=== PATIENT | female | born 1960 | race Caucasian/White ===

== ENCOUNTER → 2018-05-13 | Outpatient (CLI) | payer BC ==
--- NOTE | 2018-05-13 16:43 | XR ---
EXAMINATION TYPE: XR foot complete RT DATE OF EXAM: 05/13/2018 COMPARISON: NONE HISTORY: Pain TECHNIQUE: 3 views FINDINGS: There is a 9 mm area of increased density at the base of this proximal phalanx of the secon d toe that could be bone cement or bone graft related to previous bone cyst. There is narrowing and s purring at the first MP joint. Metatarsals are intact. I see no fracture nor dislocation. There is a plantar calcaneal spur. IMPRESSION: Osteoarthritis at the first MP joint. No fracture.
== END | disposition home or self-care (01) ==
LOC: RADXRYALE 16:25
PROVIDERS: ATTEND Internal Medicine
DX: M19.071 Primary osteoarthritis, right ankle and foot (principal)

== ENCOUNTER → 2018-12-10 | Outpatient (CLI) | payer BC | END | disposition home or self-care (01) | LOC: LABPAT 14:18 | PROVIDERS: ATTEND Orthopaedic Surgery | DX: Z01.812 Encounter for preprocedural laboratory examination (principal) | CPT/HCPCS: 87070 ==

== ENCOUNTER → 2018-12-18 | Outpatient (CLI) | payer BC ==
[2018-12-18 17:30] LABS: INR 0.9 (<1.2); Partial Thromboplastin Time 24.3 sec (22.0-30.0); Prothrombin Time 9.8 sec (9.0-12.0)
[2018-12-18 17:31] LABS: Appearance,Urine Clear (Clear); Bilirubin,Urine Negative (Negative); Blood,Urine Small (Negative); Color,Urine Yellow; Glucose,Urine (UA) Negative (Negative); HCT 45.3 % (34.0-46.0); Ketones,Urine Negative (Negative); Leukocyte Esterase,Urine Negative (Negative); MCH 30.7 pg (25.0-35.0); MCHC 33.1 g/dL (31.0-37.0); MCV 92.7 fL (80.0-100.0); Mean Platelet Volume 7.2; Mucus,Urine Rare /hpf; Nitrite,Urine Negative (Negative); PH, Urine 6.5 (5.0-8.0); Platelet Count 196 k/uL (150-450); Protein,Urine Negative (Negative); RBC 4.89 m/uL (3.80-5.40); RBC,Urine 5 /hpf (0-5); RDW 12.6 % (11.5-15.5); Specific Gravity,Urine 1.015 (1.001-1.035); Urobilinogen,Urine <2.0 mg/dL (<2.0); WBC 6.6 k/uL (3.8-10.6)
[2018-12-18 17:55] LABS: Anion Gap 8 mmol/L; Blood Urea Nitrogen 16 mg/dL (7-17); Carbon Dioxide 30 mmol/L (22-30); Chloride 104 mmol/L (98-107); Potassium 4.1 mmol/L (3.5-5.1); Sodium 142 mmol/L (137-145)
== END | disposition home or self-care (01) ==
LOC: LABPAT 16:13
PROVIDERS: ATTEND Orthopaedic Surgery
DX: Z01.818 Encounter for other preprocedural examination (principal); M17.11 Unilateral primary osteoarthritis, right knee; Z01.812 Encounter for preprocedural laboratory examination
CPT/HCPCS: 36415; 80051; 81001; 82565; 84520; 85027; 85610; 85730; 93005

== ENCOUNTER 2018-12-23 10:38 | Inpatient (IN) | payer BC ==
[~2018-12-23 10:38] MED LIST: ACETAMINOPHEN TAB 500 MG TAB PO ONE; LIDOCAINE 1% 20 ML VIAL (10MG/ML) FOR IV START INTRADERMA PRN; MIDAZOLAM (PF) 2 MG/2 ML VIAL IV PRN; ONDANSETRON 4 MG/2 ML VIAL IVP ONE; TRANEXAMIC ACID 1,000 MG in SODIUM CHLORIDE 0.9% 100 ML IVPB ONE; ceFAZolin IN SWFI 2 GM/20 ML SYRINGE IVP ONE; fentaNYL (PF) 50 MCG/ML 2 ML AMP IV PRN
[2018-12-23 11:16] LABS: Glucose,Whole Blood 102 mg/dL (75-99)
[2018-12-23] MEDS: LACTATED RINGERS 1,000 ML IV SCH ×4 (11:16→17:47)
[2018-12-23] MEDS ORDERED: MIDAZOLAM 2 MG/2 ML VIAL IVP ONE (11:42)
[2018-12-23] MEDS ORDERED: fentaNYL (PF) 50 MCG/ML 2 ML AMP IVP ONE (11:42)
[2018-12-23] MEDS ORDERED: ROPIVACAINE 1,100 MG, SODIUM CHLORIDE 0.9% 500 ML 330 ML MISCELLANE PRN ×2 (12:14)
--- NOTE | 2018-12-23 12:17 | P.ONQ ---
Anesthesiology Proc Note - PNB - Peripheral Nerve Block Performed Right Adductor Canal Infusion Time Out Performed: Yes Procedure Start Time: 11:42 Indication: Acute Post-Operative Pain, Analgesia Sedation Type: Awake Preparation: Sterile Prep Position: Supine Catheter Depth at Skin (cm): 7 Catheter: Indwelling Needle Types: Other (see comment) (Sherri) Needle Size: 100mm (4") Needle Gauge: 18 Technique: Ultrasound Injectate: 0.5% Ropivacaine (see comment for volume) (20) Blood Aspirated: No Pain Paresthesia on Injection Noted: No Resistance on Injection: Normal Events: Uneventful and Well Tolerated
[2018-12-23] MEDS ORDERED: MIDAZOLAM 2 MG/2 ML VIAL ONE (12:32)
[2018-12-23] MEDS ORDERED: SODIUM CHLORIDE 0.9% 100 ML BAG ONE (12:32)
[2018-12-23] MEDS ORDERED: fentaNYL (PF) 50 MCG/ML 2 ML AMP ONE (12:32)
[2018-12-23] MEDS ORDERED: TRANEXAMIC ACID 1,000 MG/10 ML VIAL ONE (12:32)
[2018-12-23] MEDS ORDERED: PROPOFOL 10 MG/ML 20 ML VIAL IV ONE (12:32)
[2018-12-23] MEDS ORDERED: PHENYLEPHRINE-0.9% NACL SYG 1 MG/10 ML SYRINGE ONE (12:32)
[2018-12-23] MEDS: ROPIVACAINE 246.25 MG, EPINEPHrine 0.5 MG, KETOROLAC 30 MG, cloNIDine HCL/PF 80 MCG, WA... MISCELLANE ONE ×10 (12:37→13:35)
[2018-12-23] MEDS ORDERED: ceFAZolin 3,000 MG in SODIUM CHLORIDE 0.9% IRRIGATIO 3,000 ML IRRIGATION ONE (12:37)
[2018-12-23] MEDS ORDERED: LACTATED RINGERS 1,000 ML IV ONE (14:39)
[2018-12-23] MEDS ORDERED: NALOXONE 0.4 MG/ML 1 ML VIAL IV PRN (15:06)
[2018-12-23] MEDS ORDERED: HYDROmorphone 1 MG/ML 1 ML SYRINGE IVP PRN (15:06)
[2018-12-23] MEDS ORDERED: TEMAZEPAM 15 MG CAP PO PRN (15:06)
[2018-12-23] MEDS ORDERED: BISACODYL 10 MG SUPP RECTAL PRN (15:06)
[2018-12-23] MEDS ORDERED: HYDROcodone/APAP 5-325MG 1 EACH TAB PO PRN (15:06)
[2018-12-23] MEDS ORDERED: HYDROmorphone 0.5 MG/0.5 ML SYRINGE IVP PRN ×2 (15:06)
[2018-12-23] MEDS ORDERED: MAGNESIUM HYDROXIDE 2,400 MG/10 ML CUP PO PRN (15:06)
[2018-12-23] MEDS ORDERED: NA PHOS,M-B/NA PHOS,DI-BA 133 ML ENEMA RECTAL PRN (15:06)
[2018-12-23 15:35] LABS: Glucose,Whole Blood 93 mg/dL (75-99)
--- NOTE | 2018-12-23 15:35 | P.OP ---
Date of Procedure: 12/23/18 Procedure(s) Performed: PREOPERATIVE DIAGNOSIS: Right knee severe osteoarthritis with genu varum POSTOPERATIVE DIAGNOSIS: Right knee severe osteoarthritis with genu varum OPERATION: Right knee cemented total replacement arthroplasty. ANESTHESIA: Spinal ESTIMATED BLOOD LOSS: 100 ml. CRITICAL CARE NURSE SPECIALIST: Melony Briseno PA-C (assistance with: patient positioning, retraction, exposure, hemostasis, leg positioning, implantation, irrigation, closure, dressing) COMPLICATIONS: None apparent. COMPONENTS IMPLANTED: Persona system from [employer] INDICATIONS: Cheryl is a 58-year-old female with a history of right knee osteoarthritis. The patient's knee is end-stage, and conservative management has failed. The operation of knee replacement has been discussed at length in the office, as well as potential risks and complications. These are inclusive of, but not limited to: bleeding, infection, scarring, discomfort, blood vessel and nerve damage, need for further surgery, failure to relieve symptoms, persistence, recurrence, or worsening of problems, loosening, dislocation, wear , blood clot, pulmonary embolism, , gait dysfunction, stiffness, and other risks as discussed in the office. The patient elects to proceed and the consent form has been signed. PROCEDURE: The patient was taken to the operating room and positioned on the operating room table in the supine position. Anesthesia was initiated. Care was taken to make sure that all pressure points were adequately padded. The operative lower extremity was prepped and draped in the usual aseptic fashion using ChloraPrep. Ioban drape was used for the case and the patient received intravenous antibiotics within one hour of the incision. A pneumotourniquet and leg luna were used for the case. The limb was exsanguinated with an Esmarch bandage and the tourniquet was inflated to 350 mmHg. Time-out was called confirming the patient's identity, side, procedure and administration of antibiotics and tranexamic acid. The incision was then created midline directly over the knee, carried down through skin and into the subcutaneous tissues and down to fascia. Full thickness subcutaneous medial flap was developed. Medial parapatellar arthrotomy was performed and the interior of the knee was inspected. There was end-stage osteoarthritis of the knee with a mild to moderate genu varum type deformity. The fat pad was excised and proximal medial release on the tibia was completed using meticulous dissection and a curved osteotome. The anterior cruciate ligament was taken down. Note was made of significant attrition of the anterior and significant degenerative appearance of the cruciate ligaments. The exposure was excellent. The knee was flexed 90 degrees and the patella was everted. A spot was chosen on the femur approximately 1 cm anterior to the posterior cruciate ligament insertion and an intramedullary hole was created within the femur. The intramedullary guide was then set to 5 degrees of valgus. The distal cutting block was attached and pinned into position. An appropriate amount of distal femoral resection was set. The oscillating saw was then used to make the distal femoral cut. This cut was confirmed to be flat with the flat end of an osteotome. The retractors were placed around the tibia and the tibial surface was addressed. The angle and depth of resection was adjusted using an extramedullary cutting guide. The guide had a built-in 3 degree posterior slope cut. Once the cutting guide was adjusted appropriately and in line with the axis of the tibia and confirmed to be in good position in relation to the second metatarsal and transmalleolar axis, the tibial cut was then created with protection of the posterior neurovascular structures and the collateral ligaments. The tibial cut surface was removed and sized. Femoral sizing was then accomplished using anterior referencing. Care was taken to analyze the posterior condyles for signs of deficiency or severe wear, and adjustments to the guide were made, as appropriate. 3 degree external rotation pins were placed. The cutting jig for the femur was applied to these pins. The planned cuts were further analyzed prior to performing them with the oscillating saw. No femoral notching was produced. Bone fragments were removed and the cut surfaces were finished, as necessary, with a reciprocating saw. Spacer block technique was then used to confirm that the flexion and extension gaps were equal. Soft tissue releases and adjustment of the tibial and/or femoral cuts were made, as necessary, until the gaps were equal. This included release of the posterior cruciate ligament, which was excessively tight in this patient. The femur was then further finished for a posterior cruciate ligament substituting component. Patellar resurfacing was performed using a reamer. The size of the required patellar component was estimated and the patellar surface was then reamed down to a residual thickness which would recreate the yocha dehe thickness with the component. The exact placement of the patellar component was adjusted for position based on preoperative x-rays and intraoperative findings. Prior to placing trial components, anesthetic solution consisting of ropivicaine with epinephrine, ketorolac, and clonidine was injected carefully and methodically in a grid pattern using aspiration technique into the soft tissue around the knee circumferentially, starting with the deeper tissues first and progressing to fascia, and then finally the skin/subcutaneous tissue. Particular care was taken when injecting the posterior capsule. The trial components were inserted. The tibial tray was allowed to self center and the patella was noted to track very well. The position of the tibial component was marked and the tibia was then finished for a stemmed tibial component. Cement was mixed on the back table and applied to the final components. Trial components were removed and the cut surfaces of the bone were pulse lavaged thoroughly and dried. Cement was then applied to the tibial surface and pressurized into the surface using finger pressurization technique. The tibial component was then applied and excess cement was removed after it was impacted securely and noted to be flush with the cut surface. In similar fashion, the cement was applied to the cut femoral surface, pressurized in using finger pressurization and the component was impacted into place. Excess cement was removed. The polyethylene spacer was then implanted and locked into position. The patellar component was then applied in similar technique and a patellar clamp was used to hold the patella in place as the cement hardened. Once the cement had fully hardened, the knee was reinspected. Any other cement extrusion was removed and final kinematic testing showed range of motion from 0 to 130 degrees with excellent stability, both medially and laterally and appropriate alignment of the leg. Patellar tracking was excellent. The knee was then thoroughly pulse lavaged with normal saline. The tourniquet was deflated and hemostasis was obtained with electrocautery and IV tranexamic acid, 1 g given at the start of the operation and 1 g at the start of closure. Closure was with #2 Ethibond in the fascia/capsule and supplemented with #2 Quill, 2-0 Vicryl suture was used for the subcutaneous tissues and 3-0 Quill for the skin. Dermabond/Steri-Strips were then applied. A lightly compressive dressing was applied using Webril and an Naseem wrap. The patient was then transferred to stretcher and taken to the recovery room in stable condition. Sponge and needle counts were correct.
[2018-12-23] MEDS: HYDROcodone/APAP 5-325MG 1 EACH TAB PO PRN ×2 (16:22→21:19)
--- NOTE | 2018-12-23 16:45 | XR ---
EXAMINATION TYPE: XR knee limited RT DATE OF EXAM: 12/23/2018 CLINICAL HISTORY: Right knee pain and arthritis status post total knee replacement. TECHNIQUE: Portable AP and crosstable lateral views of the right knee are obtained immediately posto peratively. COMPARISON: None FINDINGS: Metallic hardware from total right knee arthroplasty is seen and appears satisfactory in a lignment and position. There is evidence of recent surgery with diffuse subcutaneous gas extending l aterally and superiorly. IMPRESSION: METALLIC HARDWARE FROM TOTAL RIGHT KNEE ARTHROPLASTY IS SATISFACTORY IN ALIGNMENT.
[2018-12-23 17:10] LABS: Glucose,Whole Blood 158 mg/dL (75-99)
[2018-12-23 18:04] VITALS: BMI 28.2
[2018-12-23 20:07] LABS: Glucose,Whole Blood 137 mg/dL (75-99)
[2018-12-23] MEDS ORDERED: ATORVASTATIN 20 MG TAB PO SCH (21:00)
[2018-12-23] MEDS: SENNOSIDES-DOCUSATE SODIUM 1 EACH TAB PO SCH ×2 (21:15→21:18)
[2018-12-23] MEDS: INSULIN ASPART (NovoLOG) 100 UNIT/ML VIAL SQ SCH (21:16)
[2018-12-23] MEDS: metFORMIN 500 MG TAB PO SCH (21:17)
[2018-12-23] MEDS: ceFAZolin IN SWFI 2 GM/20 ML SYRINGE IVP SCH (21:17)
[2018-12-24 01:41] VITALS: RESP 16
[2018-12-24] MEDS: LACTATED RINGERS 1,000 ML IV SCH ×2 (02:55→11:53)
[2018-12-24] MEDS: ceFAZolin IN SWFI 2 GM/20 ML SYRINGE IVP SCH (04:01)
[2018-12-24] MEDS: HYDROcodone/APAP 5-325MG 1 EACH TAB PO PRN ×2 (04:01→09:19)
[2018-12-24 07:18] LABS: Glucose,Whole Blood 130 mg/dL (75-99)
[2018-12-24 07:58] LABS: Basophils % (A) 0 %; Eosinophils # (A) 0.1 k/uL (0-0.7); Eosinophils % (A) 1 %; HCT 39.3 % (34.0-46.0); HGB 12.5 gm/dL (11.4-16.0); Lymphocytes % (A) 11 %; MCH 30.2 pg (25.0-35.0); MCHC 31.9 g/dL (31.0-37.0); MCV 94.6 fL (80.0-100.0); Mean Platelet Volume 6.8; Monocytes # (A) 0.5 k/uL (0-1.0); Monocytes % (A) 5 %; Neutrophils # (A) 7.2 k/uL (1.3-7.7); Neutrophils % (A) 82 %; Platelet Count 194 k/uL (150-450); RBC 4.16 m/uL (3.80-5.40); RDW 12.4 % (11.5-15.5); WBC 8.9 k/uL (3.8-10.6)
[2018-12-24] MEDS: INSULIN ASPART (NovoLOG) 100 UNIT/ML VIAL SQ SCH ×2 (08:01→11:53)
[2018-12-24] MEDS ORDERED: RIVAROXABAN 10 MG TAB PO SCH (09:00)
[2018-12-24] MEDS: metFORMIN 500 MG TAB PO SCH (09:19)
[2018-12-24 09:23] VITALS: BP 116/73; PULSE 83; TEMP 98.2
[2018-12-24 11:32] LABS: Glucose,Whole Blood 122 mg/dL (75-99)
--- NOTE | 2018-12-24 11:53 | P.PN ---
Progress Note - Text Anesthesia POD 1. Patient is status post right TKR under spinal anesthesia with a right adductor canal catheter placed for postoperative pain relief. With ropivacaine 0.2% running at 8 cc's per hour, the patient's VAS is (1, 3). Catheter site is clean dry and intact.
--- NOTE | 2018-12-24 12:56 | P.DS ---
Providers Date of admission: 12/23/18 10:38 Expected date of discharge: 12/24/18 Attending physician: Ebenezer Pickard Consults: 12/23/18 15:06 Consult Physician Routine Consulting Provider: Gaston Quinteros Consult Reason/Comments: Medical management Do you want consulting provider notified?: Yes Primary care physician: Maryjo Fajardo - Discharge Diagnosis(es) (1) Osteoarthritis of right knee Current Visit: Yes Status: Acute (2) S/P total knee arthroplasty Current Visit: Yes Status: Acute Hospital Course: This is a 58-year-old female who was last seen with complaint of continued right knee pain. The patient has a known history of degenerative arthritis of the right knee and presents to discuss surgical options. After discussion and consideration the patient elects to proceed with total right knee arthroplasty. The patient is seen preoperatively by Dr. Fajardo and cleared for surgery. The patient is admitted to [facility] for total right knee arthroplasty. The procedures performed without complication or sequelae. Patient is doing well postoperatively. Vital signs are stable at discharge. Labs are stable at discharge. the patient is ambulating well with walker with minimal assistance. The patient is discharged to home on postop day #1 pending medical clearance. Please see orders and refer to the med rec for accurate list of medications. Patient Condition at Discharge: Good Plan - Discharge Summary Discharge Rx Participant: No New Discharge Prescriptions: New HYDROcodone/APAP 5-325MG [[place] 5-325] 1 - 2 each PO Q4-6H PRN #50 tab PRN Reason: Pain Rivaroxaban [Xarelto] 10 mg PO DAILY #5 tab Sennosides-Docusate Sodium [Senokot-S] 1 tab PO BID #60 tablet No Action metFORMIN HCL [Glucophage] 500 mg PO BID Simvastatin [Zocor] 40 mg PO HS Lisinopril [Zestril] 5 mg PO HS Nabumetone [Relafen] 750 mg PO BID Discharge Medication List Lisinopril [Zestril] 5 mg PO HS 02/16/15 [History] Nabumetone [Relafen] 750 mg PO BID 02/16/15 [History] Simvastatin [Zocor] 40 mg PO HS 02/16/15 [History] metFORMIN HCL [Glucophage] 500 mg PO BID 02/16/15 [History] HYDROcodone/APAP 5-325MG [[place] 5-325] 1 - 2 each PO Q4-6H PRN #50 tab 12/23/18 [Rx] Rivaroxaban [Xarelto] 10 mg PO DAILY #5 tab 12/23/18 [Rx] Sennosides-Docusate Sodium [Senokot-S] 1 tab PO BID #60 tablet 12/23/18 [Rx] Follow up Appointment(s)/Referral(s): Melony Briseno PAC [PHYSICIAN [employer]] - 01/03/19 2:30 pm [facility], [NON-STAFF] - As Needed Maryjo Fajardo MD [Primary Care Provider] - 1 Week Patient Instructions/Handouts: *Surgery [facility] - On-Q Pain Pump Discharge Instructions, Knee Replacement (DC) Activity/Diet/Wound Care/Special Instructions: May bear wt as tolerated w walker. May shower if no drainage from incision. Discharge Disposition: HOME WITH HOME HEALTH SERVICES
[2018-12-24 13:29] LABS: Hemoglobin A1C 5.5 % (4.0-6.0)
--- NOTE | 2018-12-24 13:42 | P.CONS ---
History of Present Illness - Reason for Consult Recommendations regarding antihypertensive medications medical clearance. - History of Present Illness 58-year-old [place] female admitted for right total knee arthroplasty sepsis and underwent surgery denied any fever chills nausea vomiting abdominal pain patient is passing as he did not move her bowel yet patient does not have any other signs or symptoms of sepsis. Patient uses lisinopril at home which is being held at this time point of time to prevent perioperative hypotension. I believe patient is ready to go home today patient can resume Antihypertensive medication tomorrow no further recommendations from medicine perspective and her metformin was restarted. Review of Systems REVIEW OF SYSTEMS: CONSTITUTIONAL: No fever, no malaise, no fatigue. HEENT: No recent visual problems or hearing problems. Denied any sore throat. CARDIOVASCULAR: No chest pain, orthopnea, PND, no palpitations, no syncope. PULMONARY: No shortness of breath, no cough, no hemoptysis. GASTROINTESTINAL: No diarrhea, no nausea, no vomiting, no abdominal pain. NEUROLOGICAL: No headaches, no weakness, no numbness. HEMATOLOGICAL: Denies any bleeding or petechiae. GENITOURINARY: Denies any burning micturition, frequency, or urgency. MUSCULOSKELETAL/RHEUMATOLOGICAL: Denies any joint pain, swelling, or any muscle pain. ENDOCRINE: Denies any polyuria or polydipsia. The rest of the 14-point review of systems is negative. Past Medical History Past Medical History: Diabetes Mellitus, GERD/Reflux, Hyperlipidemia, Hypertension, Osteoarthritis (OA) History of Any Multi-Drug Resistant Organisms: None Reported Past Surgical History: Orthopedic Surgery, Tubal Ligation, Uterine Ablation Additional Past Surgical History / Comment(s): ryley carpal tunnel, left knee scope, rt foot, rt rotator cuff, and pain pump removal 3 days post op Past Anesthesia/Blood Transfusion Reactions: No Reported Reaction Past Psychological History: No Psychological Hx Reported Smoking Status: Never smoker Past Alcohol Use History: Rare Past Drug Use History: None Reported - Past Family History Brother(s) Family Medical History: Deep Vein Thrombosis (DVT) Mother Family Medical History: Blood Disorder Additional Family Medical History / Comment(s): thrombocytopenic purpura Medications and Allergies Home Medications Medication Instructions Recorded Confirmed Type Lisinopril [Zestril] 5 mg PO HS 02/16/15 12/23/18 History Nabumetone [Relafen] 750 mg PO BID 02/16/15 12/23/18 History Simvastatin [Zocor] 40 mg PO HS 02/16/15 12/23/18 History metFORMIN HCL [Glucophage] 500 mg PO BID 02/16/15 12/23/18 History HYDROcodone/APAP 5-325MG [Altha 1 - 2 each PO Q4-6H PRN #50 tab 12/23/18 Rx 5-325] Rivaroxaban [Xarelto] 10 mg PO DAILY #5 tab 12/23/18 Rx Sennosides-Docusate Sodium 1 tab PO BID #60 tablet 12/23/18 Rx [Senokot-S] Allergies Allergy/AdvReac Type Severity Reaction Status Date / Time clindamycin HCl Allergy Rash/Hives Verified 12/23/18 16:21 [From Cleocin] clindamycin palmitate HCl Allergy Rash/Hives Verified 12/23/18 16:21 [From Cleocin] clindamycin phosphate Allergy Rash/Hives Verified 12/23/18 16:21 [From Cleocin] Physical Exam Vitals: Vital Signs Temp Pulse Pulse Pulse Resp BP Pulse Ox 12/24/18 09:22 98.2 F 83 16 116/73 92 L 12/24/18 03:30 16 12/24/18 00:00 16 12/23/18 23:25 98.9 F 74 14 103/58 94 L 12/23/18 20:00 15 12/23/18 19:20 98.4 F 70 15 109/57 96 12/23/18 17:12 80 125/50 98 12/23/18 16:57 74 125/75 98 12/23/18 16:42 74 130/69 93 L 12/23/18 16:27 73 144/76 99 12/23/18 16:14 72 134/71 99 12/23/18 15:57 72 142/87 98 12/23/18 15:42 97.6 F 70 125/68 98 12/23/18 15:35 73 16 120/62 98 12/23/18 15:20 71 16 109/57 96 12/23/18 15:05 97 F L 80 14 120/59 97 Intake and Output 12/23/18 12/24/18 12/24/18 22:59 06:59 14:59 Intake Total 300 Output Total 50 Balance 250 Intake: IV 300 Output: Estimated Blood Loss 50 Other: Voiding Method Toilet Toilet # Voids 1 1 PHYSICAL EXAMINATION: GENERAL: The patient is alert and oriented x3, not in any acute distress. Well developed, well nourished. HEENT: Pupils are round and equally reacting to light. EOMI. No scleral icterus. No conjunctival pallor. Normocephalic, atraumatic. No pharyngeal erythema. No thyromegaly. CARDIOVASCULAR: S1 and S2 present. No murmurs, rubs, or gallops. PULMONARY: Chest is clear to auscultation, no wheezing or crackles. ABDOMEN: Soft, nontender, nondistended, normoactive bowel sounds. No palpable organomegaly. MUSCULOSKELETAL: Deferred to orthopedic surgery EXTREMITIES: No cyanosis, clubbing, or pedal edema. NEUROLOGICAL: Gross neurological examination did not reveal any focal deficits. SKIN: No rashes. Results CBC & Chem 7: 12/24/18 07:01 Labs: Abnormal Lab Results - Last 24 Hours (Table) 12/23/18 12/23/18 12/24/18 Range/Units 16:58 19:55 07:06 POC Glucose (mg/dL) 158 H 137 H 130 H (75-99) mg/dL 12/24/18 Range/Units 11:21 POC Glucose (mg/dL) 122 H (75-99) mg/dL Assessment and Plan Plan: -Hypertension: As mentioned above patient can be resumed on 9 lisinopril tomorrow I'm expecting her blood pressure would go by tomorrow. -Type 2 diabetes mellitus patient will be resumed on metformin upon discharge -Gastroesophageal reflux disease -Hyperlipidemia -Status post knee arthroplasty DVT prophylaxis and. Management as per primary service Her discharge medication was reviewed, it appears to be appropriated no changes are being made and patient is okay to be discharged from medical perspective
== END 2018-12-24 14:02 | disposition home health service (06) | DRG 470 ==
LOC: 2ORMAIN 10:38 → 4SSUR 15:32
PROVIDERS: ADMIT Orthopaedic Surgery; ATTEND Orthopaedic Surgery
PROC: 0SRC0J9 Replacement of Right Knee Joint with Synthetic Substitute, Cemented, Open Approach (ICD-10-PCS; principal; 2018-12-23 12:30)
DX: M17.11 Unilateral primary osteoarthritis, right knee (principal); E11.9 Type 2 diabetes mellitus without complications; M21.161 Varus deformity, not elsewhere classified, right knee; E78.5 Hyperlipidemia, unspecified; I10 Essential (primary) hypertension; K21.9 Gastro-esophageal reflux disease without esophagitis; Z79.84 Long term (current) use of oral hypoglycemic drugs; Z79.1 Long term (current) use of non-steroidal anti-inflammatories (NSAID); Z79.899 Other long term (current) drug therapy; Z88.1 Allergy status to other antibiotic agents; Z98.51 Tubal ligation status; Z83.2 Family history of diseases of the blood and blood-forming organs and certain disorders involving the immune mechanism
CPT/HCPCS: 83036; 85025; 88300

== ENCOUNTER → 2019-07-29 | Outpatient (CLI) | payer BC ==
--- NOTE | 2019-07-30 07:19 | US ---
EXAMINATION TYPE: US pelvic complete DATE OF EXAM: 07/29/2019 COMPARISON: NONE CLINICAL HISTORY: R10.2 PELVIC PAIN. TECHNIQUE: Transabdominal (TA). Date of LMP: None provided EXAM MEASUREMENTS: Uterus: 5.5 x 2.6 x 4.7 cm Endometrial Stripe: 0.3 cm Right Ovary: 2.6 x 1.2 x 1.8 cm Left Ovary: 1.8 x 1.4 x 1.4 cm 1. Uterus: 5.5 x 2.6 x 4.7cm 2. Endometrium: 0.3cm 3. Right Ovary: 2.6 x 1.8 x 1.2 cm 4. Left Ovary: 1.8 x 1.4 x 1.4cm 5. Bilateral Adnexa: wnl 6. Posterior cul-de-sac: wnl IMPRESSION: Unremarkable pelvic ultrasound. Endometrial thickness is within normal limits for a postm enopausal female. Ovaries are similar in size without suspicious mass.
--- NOTE | 2019-07-30 07:27 | US ---
EXAMINATION TYPE: US kidneys/renal and bladder DATE OF EXAM: 07/29/2019 COMPARISON: NONE CLINICAL HISTORY: R10.2 PELVIC PAIN. EXAM MEASUREMENTS: Right Kidney: 10.2 x 4.0 x 4.3 cm Left Kidney: 10.1 x 4.8 x 4.5 cm Right Kidney: echogenic foci, possible stone 0.3 x 0.2 x 0.2cm Left Kidney: possible mild hydro, scattered echogenic foci Bladder: wnl There is no evidence for hydronephrosis on the right. No nephrolithiasis is seen on the left. No foster spicious masses are identified. The urinary bladder is anechoic. Bilateral ureteral jets are seen. IMPRESSION: 1. There appears to be mild left hydronephrosis versus pelvocaliectasis. CT abdomen and pelvis with c ontrast and delayed imaging could further assess this finding. 2. Punctate nonobstructing right renal calculus.
== END ==
LOC: RADUSWWP 15:33
PROVIDERS: ATTEND Internal Medicine
DX: N20.0 Calculus of kidney (principal); R10.2 Pelvic and perineal pain
CPT/HCPCS: 76770; 76856

== ENCOUNTER → 2019-08-28 | Outpatient (CLI) | payer BC ==
--- NOTE | 2019-08-29 04:53 | CT ---
EXAMINATION TYPE: CT urogram wo/w con DATE OF EXAM: 08/28/2019 COMPARISON: Correlation ultrasound 07/29/2019 HISTORY: 59-year-old female Microscopic hematuria and hydronephrosis. TECHNIQUE: Contiguous axial scanning of the abdomen and pelvis performed without and with IV Contrast , patient injected with 100ml mL of Isovue 300. Delayed images through the kidneys and bladder were o btained. Coronal/sagittal reconstructions performed. 3-D reconstructions generated on a dedicated [employer] workstation. CT DLP: 1648.8 mGycm Automated exposure control for dose reduction was used. FINDINGS: Heart normal size without pericardial effusion. Lung bases clear without pleural effusion. Liver mildly enlarged at 19.1 cm without significant fatty infiltration. No focal liver lesion or ryley iary ductal dilatation. Portal venous system is patent. Cholecystectomy clips. Adrenal glands, spleen, and pancreas appear within normal limits. Kidneys show no evidence for lithiasis. There is symmetric uptake and excretion of contrast from both kidneys. Parapelvic cysts are present on the left measuring up to 2.4 cm and on earlier images have the appearance of hydronephrosis. There is no hydronephrosis. No suspicious renal lesion. No suspicious filling defect within the renal collecting systems or along the course of either ureter . No dilated small bowel, free fluid, or free air. Normal appendix. Scattered mild to moderate stool. N o pericolonic inflammatory change. No mesenteric or retroperitoneal lymphadenopathy. The posterior two thirds of the bladder. Some opacified on the delayed images. No mural based filling defect is identified along the posterior two thirds aspect. The anterior one third is limited due to nonopacification but no obvious abnormal wall thickening is seen. Uterus is anteverted. Right ovary not clearly delineated from adjacent clustered bowel loops. Left ov serena is seen. Dropped surgical clip within the left cul-de-sac. No abnormal fluid collection in the pe lvis. No pelvic lymphadenopathy seen. Bones: Degenerative changes at the pubic symphysis. Degenerative changes at the hips. Degenerative ch anges at the right greater than left SI joints and moderate to advanced degenerative disc disease L3- L4 and L4-L5. IMPRESSION: 1. PROMINENT PARAPELVIC CYSTS ON THE LEFT MEASURING UP TO 2.4 CM ACCOUNT FOR THE RECENT 07/29/2019 ULT RASOUND FINDINGS. NO HYDRONEPHROSIS OR OBSTRUCTIVE UROPATHY. 2. NO NEPHROLITHIASIS OR SUSPICIOUS FILLING DEFECT WITHIN THE RENAL COLLECTING SYSTEMS OR ALONG THE C OURSE OF THE URETERS. NO SUSPICIOUS KIDNEY LESION. 3. THE POSTERIOR TWO THIRDS OF THE BLADDER OPACIFIES WITH CONTRAST AND SHOWS NO ABNORMAL FILLING DEFE CT. THE ANTERIOR ONE THIRD REMAINS NONOPACIFIED BUT NO OBVIOUS ABNORMAL WALL THICKENING IS SEEN.
== END | disposition home or self-care (01) ==
LOC: RADCTMAIN 16:04
PROVIDERS: ATTEND Urology
DX: N94.89 Other specified conditions associated with female genital organs and menstrual cycle (principal); R31.9 Hematuria, unspecified; Z88.1 Allergy status to other antibiotic agents
CPT/HCPCS: 82565; 84520; 74178; 36415; 74400; Q9967

== ENCOUNTER → 2020-07-07 | Outpatient (CLI) | payer BC | END | disposition home or self-care (01) | LOC: LABWHC1 13:26 | PROVIDERS: ATTEND Internal Medicine | DX: R05 Cough (principal); R07.0 Pain in throat | CPT/HCPCS: U0003; C9803 ==

== ENCOUNTER → 2021-01-20 | Outpatient (CLI) | payer BC | END | disposition home or self-care (01) | LOC: LABWHC1 16:32 | PROVIDERS: ATTEND Internal Medicine | DX: Z20.822 Contact with and (suspected) exposure to COVID-19 (principal); R05 Cough; R52 Pain, unspecified | CPT/HCPCS: U0003; C9803; U0005 ==

== ENCOUNTER → 2021-09-06 | Outpatient (CLI) | payer BC ==
--- NOTE | 2021-09-06 12:25 | XR ---
Right RIBS and chest x-ray HISTORY: [id number] PLEUODYNIA 4 views right RIBS, frontal view of the chest submitted. No comparisons There is a scoliotic curvature present within the thoracic spine, there is multilevel spondylosis. Joaquin rgical clips are present in the right upper quadrant. No evident displaced rib fracture. Bone mineral ization is maintained. The mediastinal silhouette is normal, there is no pneumothorax or pleural effu yuli. IMPRESSION: Scoliosis. Bone scan could be performed for increased sensitivity as indicated.
== END | disposition home or self-care (01) ==
LOC: RADXRYALE 10:24
PROVIDERS: ATTEND Internal Medicine
DX: R07.81 Pleurodynia (principal); M41.84 Other forms of scoliosis, thoracic region

== ENCOUNTER 2021-10-20 10:52 | Emergency (ER) | payer BC ==
[2021-10-20 11:14] VITALS: TEMP 99.3
--- NOTE | 2021-10-20 12:08 | ED ---
General Adult HPI - General Source: patient, RN notes reviewed Mode of arrival: ambulatory Limitations: no limitations <Anita Burnette - Last Filed: 10/20/21 14:00> <Tisha Mcintosh - Last Filed: 10/20/21 22:39> - General Chief complaint: Upper Respiratory Infection Stated complaint: Covid+/Wants Antibodies Time Seen by Provider: 10/20/21 11:18 - History of Present Illness Initial comments: 61-year-old female presents to the emergency department requesting the monoclonal antibody infusion. Patient states she tested positive for covid using a home test today. States symptoms began yesterday with headache, chills, and fatigue. Patient is unvaccinated. Has not taken any OTC medications to treat symptoms. Denies chest pain, difficulty breathing, abdominal pain, nausea, vomiting, diarrhea, or dysuria. (Anita Burnette) - Related Data Home Medications Medication Instructions Recorded Confirmed Nabumetone [Relafen] 750 mg PO BID 02/16/15 12/23/18 Simvastatin [Zocor] 40 mg PO HS 02/16/15 12/23/18 lisinopriL [Zestril] 5 mg PO HS 02/16/15 12/23/18 metFORMIN HCL [Glucophage] 500 mg PO BID 02/16/15 12/23/18 Previous Rx's Medication Instructions Recorded HYDROcodone/APAP 5-325MG [Julian 1 - 2 each PO Q4-6H PRN #50 tab 12/23/18 5-325] Rivaroxaban [Xarelto] 10 mg PO DAILY #5 tab 12/23/18 Sennosides-Docusate Sodium 1 tab PO BID #60 tablet 12/23/18 [Senokot-S] Allergies Allergy/AdvReac Type Severity Reaction Status Date / Time clindamycin HCl Allergy Rash/Hives Verified 10/20/21 11:11 [From Cleocin] clindamycin palmitate HCl Allergy Rash/Hives Verified 10/20/21 11:11 [From Cleocin] clindamycin phosphate Allergy Rash/Hives Verified 10/20/21 11:11 [From Cleocin] Review of Systems ROS Other: All systems not noted in ROS Statement are negative. <Anita Burnette - Last Filed: 10/20/21 14:00> ROS Other: All systems not noted in ROS Statement are negative. <Tisha Mcintosh Eugenia - Last Filed: 10/20/21 22:39> ROS Statement: Those systems with pertinent positive or pertinent negative responses have been documented in the HPI. Past Medical History Past Medical History: Diabetes Mellitus, GERD/Reflux, Hyperlipidemia, Hypertension, Osteoarthritis (OA) History of Any Multi-Drug Resistant Organisms: None Reported Past Surgical History: Orthopedic Surgery, Tubal Ligation, Uterine Ablation Additional Past Surgical History / Comment(s): ryley carpal tunnel, left knee scope, rt foot, rt rotator cuff, and pain pump removal 3 days post op Past Anesthesia/Blood Transfusion Reactions: No Reported Reaction Past Psychological History: No Psychological Hx Reported Smoking Status: Never smoker Past Alcohol Use History: Rare Past Drug Use History: Marijuana - Past Family History Brother(s) Family Medical History: Deep Vein Thrombosis (DVT) Mother Family Medical History: Blood Disorder Additional Family Medical History / Comment(s): thrombocytopenic purpura <Anita Burnette - Last Filed: 10/20/21 14:00> General Exam Limitations: no limitations (Well-developed, well-nourished female in no acute distress. Initial temperature 99.3, pulse 99, respirations 18, blood pressure 148/83, pulse ox 97% on room air.) General appearance: alert, in no apparent distress ENT exam: Present: normal exam, normal oropharynx, mucous membranes moist Respiratory exam: Present: normal lung sounds bilaterally. Absent: respiratory distress, wheezes, rales, rhonchi, stridor Cardiovascular Exam: Present: regular rate, normal rhythm, normal heart sounds. Absent: systolic murmur, diastolic murmur, rubs, gallop, clicks GI/Abdominal exam: Present: soft, normal bowel sounds. Absent: distended, tenderness, guarding, rebound, rigid Neurological exam: Present: alert, oriented X3, CN II-XII intact Psychiatric exam: Present: normal affect, normal mood Skin exam: Present: warm, dry, intact, normal color. Absent: rash <Anita Burnette - Last Filed: 10/20/21 14:00> Course Vital Signs 10/20/21 10/20/21 10/20/21 11:11 11:40 12:14 Temperature 99.3 F Pulse Rate 99 77 Respiratory 18 20 18 Rate Blood Pressure 148/83 123/89 O2 Sat by Pulse 97 97 Oximetry Medical Decision Making <Anita Burnette - Last Filed: 10/20/21 14:00> <Tisha Mcintosh - Last Filed: 10/20/21 22:39> - Medical Decision Making 61-year-old female with a past medical history of hypertension and type 2 diabetes presents to the emergency department for the monoclonal antibody infusion after testing positive today. Upon exam, patient is well-appearing and in no acute distress. She is afebrile, not tachycardic, nor tachypneic. Room air saturation is 95% or greater. Does complain of fatigue and body aches. Discussed risks and benefits associated with monoclonal antibody infusion. Does qualify based on her unvaccinated status and PMH of hypertension and T2D. Patient is agreeable and tolerated infusion without adverse reaction. Discussed follow up care and symptomatic treatment. Instructed to isolate for 10 days from symptom onset based on [facility] algorithm. Return parameters discussed in detail. Patient verbalizes understanding and agrees with this plan. This patient's care was discussed with my attending DR. Mcintosh. (Anita Burnette) I was available for consultation in the emergency department. The history and physical exam were done by the midlevel provider. I was consulted for this patients care. I reviewed the case with the midlevel provider and based on their presentation of the patient, I agree with the assessment, medical decision making and plan of care as documented. Chart was dictated using [employer] dictation software. Attempts were made to correct any dictation errors however some typographical errors may persist. Patient was seen during a national state of emergency due to the Covid-19 pandemic. (Tisha Mcintosh) - Lab Data Lab Results 10/20/21 Range/Units 11:22 Coronavirus (PCR) Detected A (Not Detectd) Disposition Is patient prescribed a controlled substance at d/c from ED?: No Time of Disposition: 13:50 <Anita Burnette - Last Filed: 10/20/21 14:00> <Tisha Mcintosh - Last Filed: 10/20/21 22:39> Clinical Impression: COVID-19 Disposition: HOME SELF-CARE Condition: Stable Instructions (If sedation given, give patient instructions): Coronavirus Disease 2019 (COVID-19) Additional Instructions: You should isolate for 10 days from symptom onset. A work note was provided with a return date reflective of this. Treat symptoms such as fever and body aches by alternating Tylenol and Motrin. Follow-up with your PCP via video or telephone visit. Return to the emergency department for any new, worsening, or concerning symptoms. Referrals: Maryjo Fajardo MD [Primary Care Provider] - 1-2 days
[2021-10-20] MEDS ORDERED: SODIUM CHLORIDE 0.9% 50 ML IVPB ONE (12:15)
[2021-10-20] MEDS ORDERED: BAMLANIVIMAB (EUA) 700 MG, ETESEVIMAB (EUA) 1,400 MG in SODIUM CHLORIDE 0.9% 100 ML IVPB ONE (12:15)
[2021-10-20 12:51] VITALS: BP 123/89; PULSE 77; RESP 18
== END 2021-10-20 14:00 | disposition home or self-care (01) ==
LOC: EC 10:52
DX: U07.1 COVID-19 (principal); E11.9 Type 2 diabetes mellitus without complications; K21.9 Gastro-esophageal reflux disease without esophagitis; E78.5 Hyperlipidemia, unspecified; I10 Essential (primary) hypertension; M19.90 Unspecified osteoarthritis, unspecified site; F12.90 Cannabis use, unspecified, uncomplicated; Z79.84 Long term (current) use of oral hypoglycemic drugs; Z88.1 Allergy status to other antibiotic agents; Z98.51 Tubal ligation status
CPT/HCPCS: 99284; M0245; 87635

== ENCOUNTER → 2023-01-10 | Outpatient (CLI) | payer BC ==
--- NOTE | 2023-01-11 06:54 | MR ---
EXAMINATION TYPE: MR shoulder LT wo con DATE OF EXAM: 01/10/2023 COMPARISON: Outside left shoulder x-ray December 26, 2022 HISTORY: Left shoulder pain after recent fall on ice injury. TECHNIQUE: Multiplanar, multisequence imaging of the left shoulder is performed without contrast. FINDINGS: Rotator Cuff: Some increased signal in the supraspinatus and to lesser degree infraspinatus tendons. No signal of fluid intensity to suggest tear. Rotator cuff muscle bulk is preserved. Acromioclavicular Joint: Mild to moderate narrowing greatest inferiorly and mild to moderate superior capsular hypertrophy. Distal acromion morphology unremarkable. Glenohumeral Joint: Small joint effusion. No significant spurring. Labrum: Increased signal superior labrum suggesting degenerative tearing coronal image 13 for referen ce. Biceps Tendon: The long head of biceps is in normal location within bicipital groove. Bone marrow signal: Some edema noted centered at the acromioclavicular joint. Other: No additional significant abnormality is appreciated. IMPRESSION: Tendinosis of the supraspinatus and infraspinatus tendons. No rotator cuff tear is presen t. Degenerative changes as detailed. Possible AC joint inflammatory changes. Correlate clinically.
== END | disposition home or self-care (01) ==
LOC: RADMRIMAIN 18:27
PROVIDERS: ATTEND Orthopaedic Surgery
DX: M67.814 Other specified disorders of tendon, left shoulder (principal)

== ENCOUNTER → 2023-01-18 | Outpatient (CLI) | payer BC ==
--- NOTE | 2023-01-18 17:13 | MR ---
EXAMINATION TYPE: MR knee LT wo con DATE OF EXAM: 01/18/2023 COMPARISON: NONE HISTORY: Pain and locking since injury December 17. TECHNIQUE: Multiplanar, multisequence images of the knee is performed without IV contrast. FINDINGS: MEDIAL MENISCUS: Anterior and posterior horns are intact without tear. LATERAL MENISCUS: Anterior and posterior horns are intact without tear. CRUCIATE LIGAMENTS: The posterior cruciate ligament is intact and unremarkable. Anterior cruciate lig ament shows fanning of the fibers and increased signal. COLLATERAL LIGAMENTS: The medial collateral ligament and lateral collateral ligament complex are inta ct and unremarkable. EXTENSOR MECHANISM: Visualized quadriceps and patellar tendons are intact. EFFUSION: There is small size suprapatellar joint effusion. POPLITEAL CYST: No popliteal/pollock cyst. TRICOMPARTMENT SPACES: Mild to moderate tricompartment joint space loss and spurring greatest involvi ng patellofemoral compartment CARTILAGE: Some chondromalacia patella with cartilaginous loss along the posterior patellar pole. BONE MARROW SIGNAL: Areas of heterogeneous increased T2 signal involve the medial aspect of the zambrano la in the medial aspect of the distal medial femoral condyle extending to the posterior distal femora l metaphyseal level. OTHER: No additional significant abnormality is appreciated. IMPRESSION: 1. Significant partial tearing of the anterior cruciate ligament with fibers that appear abnormal but remaining intact. 2. Osseous contusion injury medial aspect of the patella and the posterior medial aspect of the dista l medial femoral condyle. 3. Tricompartment degenerative changes radius in appearance at the patellofemoral compartment where a t least moderate findings are present. 4. Small-size suprapatellar joint effusion.
== END | disposition home or self-care (01) ==
LOC: RADMRIMAIN 15:59
PROVIDERS: ATTEND Orthopaedic Surgery
DX: S80.02XA Contusion of left knee, initial encounter (principal); S83.512A Sprain of anterior cruciate ligament of left knee, initial encounter; M17.12 Unilateral primary osteoarthritis, left knee; M25.462 Effusion, left knee; X58.XXXA Exposure to other specified factors, initial encounter

== ENCOUNTER → 2023-02-13 | Outpatient (CLI) | payer BC ==
[2023-02-13 20:14] LABS: Basophils # (A) 0.01 X 10*3/uL (0.00-0.10); Basophils % (A) 0.2 %; Eosinophils # (A) 0.21 X 10*3/uL (0.04-0.35); Eosinophils % (A) 3.7 %; HCT 47.8 % (37.2-46.3); Immature Grans, Automated 0.3 %; Lymphocytes # (A) 2.13 X 10*3/uL (0.90-5.00); MCH 31.2 pg (27.0-32.0); MCHC 33.5 g/dL (32.0-37.0); MCV 93.2 fL (80.0-97.0); Mean Platelet Volume 11.1 fL (9.5-12.2); Monocytes # (A) 0.31 X 10*3/uL (0.20-1.00); Monocytes % (A) 5.4 %; NRBC Per 100 WBC 0 /100 WBCS (0.0-0.0); Neutrophils # (A) 3.07 X 10*3/uL (1.80-7.70); Neutrophils % (A) 53.4 %; Platelet Count 187 X 10*3/uL (140-440); RBC 5.13 X 10*6/uL (4.10-5.20); RDW 12.1 % (11.5-14.5); WBC 5.75 X 10*3/uL (4.50-10.00)
[2023-02-13 22:48] LABS: Carbon Dioxide 24.9 mmol/L (20.0-27.5); Potassium 4.5 mmol/L (3.5-5.5)
== END | disposition home or self-care (01) ==
LOC: LABPAT 13:47
PROVIDERS: ATTEND Orthopaedic Surgery
DX: Z01.812 Encounter for preprocedural laboratory examination (principal); I49.1 Atrial premature depolarization
CPT/HCPCS: 80051; 85025; 93005

== ENCOUNTER 2023-03-01 08:57 | Day surgery (SDC) | payer BC ==
[2023-02-27 10:55] VITALS: BMI 28.1
--- NOTE | 2023-03-01 06:51 | HP ---
HISTORY AND PHYSICAL SCHEDULED DATE OF SURGERY: 03/01/2023. HISTORY OF PRESENT ILLNESS: Cheryl Monsalve is a 62-year-old patient, seen with progressive left knee pain. Options were discussed. She elected to proceed with left knee arthroscopy. Consent was obtained. PAST MEDICAL HISTORY: Hypertension, nbs-zztcwsn-mlbohxwqn diabetes, and hyperlipidemia. PAST SURGICAL HISTORY: Knee arthroscopy and shoulder arthroscopy. DAILY MEDICATIONS: 1. Lisinopril. 2. Metformin. 3. Omeprazole. 4. Simvastatin. ALLERGIES: 1. Augmentin. 2. Clindamycin. SOCIAL HISTORY: She denies tobacco use. PHYSICAL EVALUATION OF THE LEFT KNEE: Range of motion is 0 to 130 degrees. Tenderness along the medial joint line. Positive medial Luh's. +2 Radha. Collateral ligaments are stable. Distal neurovascular exam is intact. IMAGING STUDIES: Left knee radiographs revealed mild osteoarthritis. MRI left knee revealed partial ACL tear, osteoarthritis, and joint effusion. IMPRESSION: 1. Internal derangement of left knee with partial anterior cruciate ligament tear. 2. Hypertension. 3. Hyperlipidemia. 4. Vkz-yxwjbsk-oeywbkvkz diabetes. PLAN: Left knee arthroscopy with debridement of ACL tear and possible partial meniscectomy. MMODL / IJN: [id number] /
[~2023-03-01 08:57] MED LIST changes: -ACETAMINOPHEN TAB 500 MG TAB PO ONE; +LACTATED RINGERS 1,000 ML IV SCH; -LIDOCAINE 1% 20 ML VIAL (10MG/ML) FOR IV START INTRADERMA PRN; -MIDAZOLAM (PF) 2 MG/2 ML VIAL IV PRN; -ONDANSETRON 4 MG/2 ML VIAL IVP ONE; -TRANEXAMIC ACID 1,000 MG in SODIUM CHLORIDE 0.9% 100 ML IVPB ONE; -ceFAZolin IN SWFI 2 GM/20 ML SYRINGE IVP ONE; -fentaNYL (PF) 50 MCG/ML 2 ML AMP IV PRN
[2023-03-01 09:27] LABS: Glucose,Whole Blood 162 mg/dL (70-110)
[2023-03-01] MEDS ORDERED: ONDANSETRON 4 MG/2 ML VIAL ONE ×2 (09:31→09:33)
[2023-03-01] MEDS ORDERED: DEXAMETHASONE SOD PHOSPHATE 4 MG/ML 1 ML VIAL IVP ONE (09:38)
[2023-03-01] MEDS ORDERED: MIDAZOLAM 2 MG/2 ML VIAL IVP ONE (09:54)
[2023-03-01] MEDS ORDERED: fentaNYL (PF) 50 MCG/ML 2 ML AMP IVP ONE (09:54)
[2023-03-01] MEDS ORDERED: SUCCINYLCHOLINE CHLORIDE 200 MG/10 ML VIAL IV ONE (10:06)
[2023-03-01] MEDS ORDERED: PROPOFOL 10 MG/ML 20 ML VIAL IV ONE (10:06)
[2023-03-01] MEDS ORDERED: fentaNYL (PF) 50 MCG/ML 2 ML AMP ONE (10:06)
[2023-03-01] MEDS ORDERED: KETOROLAC 15 MG/ML 1 ML VIAL ONE (10:06)
[2023-03-01] MEDS ORDERED: LIDOCAINE 2% INJ 20 MG/ML (2 ML VIAL) ONE (10:06)
[2023-03-01] MEDS ORDERED: BUPIVACAINE (PF) 0.25% 30 ML VIAL INTRAARTIC ONE (10:11)
--- NOTE | 2023-03-01 11:08 | P.OP ---
Date of Procedure: 03/01/23 Preoperative Diagnosis: Internal derangement left knee Postoperative Diagnosis: 1. Tear medial and lateral meniscus left knee 2. Grade 4 chondromalacia medial femoral condyle 3. Reactive synovitis medial, lateral and suprapatellar compartments left knee 4. Partial ACL tear left knee Procedure(s) Performed: 1. Arthroscopic partial medial and lateral meniscectomy left knee 2. Arthroscopic microfracture medial femoral condyle left knee 3. Arthroscopic partial synovectomy medial, lateral and suprapatellar compartments left knee 4. Arthroscopic debridement partial ACL tear left knee Anesthesia: MARIAHA, local Surgeon: Shadi Goodwin Estimated Blood Loss (ml): 8 Pathology: none sent Condition: stable Disposition: PACU Indications for Procedure: 62-year-old patient seen with progressive left knee pain. After having treatment options discussed, she elected to proceed with arthroscopy. Operative Findings: see description of procedure Description of Procedure: Patient was taken to the operative suite. Patient underwent a general anesthetic by the department of anesthesia. Patient was given preoperative antibiotics. The left lower extremity was placed in a well-padded arthroscopic leg luna. The left leg was prepped and draped in the normal sterile orthopedic fashion. A lateral parapatellar and suprapatellar incision was made. Trochars were inserted. Arthroscopy was initiated. Suprapatellar pouch r evealed diffuse thick reactive synovitis. The patellofemoral joint appeared to articulate congruently. There was grade 1/2 chondromalacia of the patella without osteochondral tears.. The scope was guided into the medial gutter. No loose bodies or plica were identified. The scope was then guided into the medial compartment. A medial parapatellar incision was made. Trocar inserted followed by probe. There was a radial tear posterior horn medial meniscus. There was an area of grade 3/4 chondromalacia medial femoral condyle with a osteochondral flap tear present. There was some thick reactive synovitis anteriorly. I performed a partial medial meniscectomy getting down to stable meniscal tissue. I performed a chondroplasty of the medial femoral condyle getting down to stable osteochondral tissue. I performed a partial synovectomy decompressing the reactive synovitis. I noted the area of exposed bone medial femoral condyle measuring approximately 1 cm. I introduced a microfracture awl and performed a microfracture to that area penetrating the bone with resultant bleeding at the microfracture site. The residual meniscus was probed and was found to be stable. The residual osteochondral surface was stable. There was good decompression of the synovitis. Scope and probe were then guided into the intercondylar notch. There was partial tearing of the anterior cruciate li gament. I introduced a motorized shaver and debrided those torn fragments getting down to stable ligamentous tissue. The residual ACL appeared stable. The tear was about 50% of the ACL with the residual ACL. Stable. The PCL was stable.. The scope and probe were then guided into lateral compartment. There was a small radial tear involving the midbody lateral meniscus. There was no chondromalacia. There was some thick reactive synovitis anteriorly. I performed a partial lateral meniscectomy getting down to stable meniscal tissue. I performed a partial synovectomy. Shaver was now removed. The residual meniscus was stable. There was good decompression of the synovitis. The scope was in guided back into the suprapatellar compartment. I introduced a motorized shaver into the suprapatellar compartment. I debrided some piecemeal fragments of meniscus I encountered. I performed a partial synovectomy. Shaver was removed. There was good decompression of the synovitis. I took one more look around the entire knee, no residual debris. Instruments were now removed from the joint. The joint was infiltrated with .25% Marcaine. Steri-Strips were applied to the portal sites. Sterile dressings were applied. The patient was placed into a JONI hose. No tourniquet was utilized. The patient was awakened, transferred to a bed and taken to recovery stable satisfactory condition.
[2023-03-01 11:10] VITALS: TEMP 96.8
[2023-03-01 11:51] VITALS: RESP 18
[2023-03-01 12:15] VITALS: BP 130/79; PULSE 74
== END 2023-03-01 12:24 | disposition home or self-care (01) ==
LOC: OR 08:57
PROVIDERS: ATTEND Orthopaedic Surgery
DX: S83.242A Other tear of medial meniscus, current injury, left knee, initial encounter (principal); S83.282A Other tear of lateral meniscus, current injury, left knee, initial encounter; S83.512A Sprain of anterior cruciate ligament of left knee, initial encounter; M94.262 Chondromalacia, left knee; M65.862 Other synovitis and tenosynovitis, left lower leg; M17.12 Unilateral primary osteoarthritis, left knee; I10 Essential (primary) hypertension; E11.9 Type 2 diabetes mellitus without complications; Z79.84 Long term (current) use of oral hypoglycemic drugs; E78.5 Hyperlipidemia, unspecified; K21.9 Gastro-esophageal reflux disease without esophagitis; Z79.899 Other long term (current) drug therapy; Z88.0 Allergy status to penicillin; Z88.1 Allergy status to other antibiotic agents; X58.XXXA Exposure to other specified factors, initial encounter
CPT/HCPCS: 29879; 29880; J2250; J0330; J1100; J0690; J2405; J3010; J1885; J2704; J2001

== ENCOUNTER → 2023-05-01 | Outpatient (CLI) | payer BC ==
[2023-05-01 20:49] LABS: Anion Gap 13.4 mmol/L (4.00-12.00); Carbon Dioxide 23.6 mmol/L (21.6-31.8); Potassium 4.4 mmol/L (3.5-5.5)
[2023-05-02 01:32] LABS: Basophils # (A) 0.03 X 10*3/uL (0.00-0.10); Basophils % (A) 0.6 %; Eosinophils # (A) 0.25 X 10*3/uL (0.04-0.35); Eosinophils % (A) 4.7 %; HCT 47.5 % (37.2-46.3); HGB 15.4 d/dL (12.0-15.0); Lymphocytes # (A) 1.85 X 10*3/uL (0.90-5.00); Lymphocytes % (A) 34.8 %; MCH 31.4 pg (27.0-32.0); MCHC 32.4 d/dL (32.0-37.0); MCV 96.9 FL (80.0-97.0); Mean Platelet Volume 12.1 FL (9.5-12.2); Monocytes % (A) 5.6 %; NRBC Per 100 WBC 0 X 10*3/uL (0.00-0.01); Neutrophils # (A) 2.88 X 10*3/uL (1.80-7.70); Neutrophils % (A) 54.1 %; Platelet Count 189 X 10*3/uL (140-440); RDW 12.4 % (11.5-14.5); WBC 5.32 X 10*3/uL (4.50-10.00)
== END | disposition home or self-care (01) ==
LOC: LABPAT 12:54
PROVIDERS: ATTEND Orthopaedic Surgery
DX: Z01.812 Encounter for preprocedural laboratory examination (principal); M75.42 Impingement syndrome of left shoulder
CPT/HCPCS: 80051; 85025

== ENCOUNTER 2023-05-16 08:10 | Day surgery (SDC) | payer BC ==
[2023-05-11 12:04] VITALS: BMI 26.6
--- NOTE | 2023-05-15 20:39 | HP ---
HISTORY AND PHYSICAL SCHEDULED DATE OF SURGERY: 05/16/2023. HISTORY OF PRESENT ILLNESS: Cheryl Monsalve is a 62-year-old patient, seen with progressive left shoulder pain. We discussed options for treatment. The patient elected to proceed with left shoulder arthroscopy. Consent regarding procedure was obtained. PAST MEDICAL HISTORY: Hypertension, juv-cmeksbz-zcyzgwxis diabetes, and hyperlipidemia. PAST SURGICAL HISTORY: Shoulder arthroscopy and knee arthroscopy. DAILY MEDICATIONS: 1. Lisinopril. 2. Metformin. 3. Omeprazole. 4. Simvastatin. ALLERGIES: 1. Augmentin. 2. Clindamycin. SOCIAL HISTORY: She denies tobacco use. PHYSICAL EVALUATION OF THE LEFT SHOULDER: Flexion is 140 degrees, abduction is 110 degrees, external rotation is 30 degrees with pain and weakness. Tenderness along the anterolateral acromion and rotator cuff insertion. Impingement is positive at 90. Drop-arm sign is positive. Distal neurovascular exam is intact. IMAGING STUDIES: Left shoulder radiographs revealed a type 2 anterior acromion along with moderate acromioclavicular joint osteoarthritis. Left shoulder MRI revealed an increased signal throughout the rotator cuff tendon, labral tear, and inflammatory changes involving the acromioclavicular joint. IMPRESSION: 1. Left shoulder impingement, labral tear, and possible rotator cuff tear. 2. Left shoulder acromioclavicular joint osteoarthritis. 3. Hypertension. 4. Hyperlipidemia. 5. Soo-jmpyusw-wiwfnfqlg diabetes. PLAN: Left shoulder arthroscopy with subacromial decompression, possible arthroscopic rotator cuff repair, Yoselin procedure, and labral debridement. MMODL / IJN: [id number] /
[~2023-05-16 08:10] MED LIST changes: +DEXAMETHASONE SOD PHOSPHATE 4 MG/ML 1 ML VIAL IV ONE; +HYDROmorphone 0.5 MG/0.5 ML SYRINGE IVP PRN; +LIDOCAINE 1% (10MG/ML) FOR IV START INTRADERMA PRN; +ONDANSETRON 4 MG/2 ML VIAL IVP ONE; +droPERidol 5 MG/2 ML VIAL IVP ONE
[2023-05-16 08:43] LABS: Glucose,Whole Blood 160 mg/dL (70-110)
[2023-05-16] MEDS ORDERED: fentaNYL (PF) 50 MCG/ML 2 ML AMP IVP ONE (09:27)
[2023-05-16] MEDS ORDERED: MIDAZOLAM 2 MG/2 ML VIAL IVP ONE (09:27)
[2023-05-16] MEDS ORDERED: fentaNYL (PF) 50 MCG/ML 2 ML AMP ONE (09:48)
[2023-05-16] MEDS ORDERED: NEOSTIGMINE 1 MG/ML 10 ML VIAL ONE (09:48)
[2023-05-16] MEDS ORDERED: MIDAZOLAM 2 MG/2 ML VIAL ONE (09:48)
[2023-05-16] MEDS ORDERED: ROCURONIUM 10 MG/ML (5 ML VIAL) IV ONE (09:48)
[2023-05-16] MEDS ORDERED: ROPIVACAINE 5 MG/ML 30 ML VIAL ONE (09:48)
[2023-05-16] MEDS ORDERED: PROPOFOL 10 MG/ML 20 ML VIAL IV ONE (09:48)
[2023-05-16] MEDS ORDERED: SUCCINYLCHOLINE CHLORIDE 200 MG/10 ML VIAL IV ONE (09:48)
[2023-05-16] MEDS ORDERED: GLYCOPYRROLATE 0.2 MG/ML 2 ML VIAL ONE (09:48)
[2023-05-16] MEDS ORDERED: PHENYLEPHRINE 10 MG/ML VIAL ONE (09:48)
[2023-05-16] MEDS ORDERED: LIDOCAINE 2% INJ 20 MG/ML (2 ML VIAL) ONE (09:48)
[2023-05-16] MEDS ORDERED: LACTATED RINGERS 1,000 ML IV ONE (10:41)
--- NOTE | 2023-05-16 11:22 | P.OP ---
Date of Procedure: 05/16/23 Preoperative Diagnosis: Left shoulder impingement Postoperative Diagnosis: 1. Left shoulder rotator cuff tear 2. Left shoulder impingement 3. Left shoulder long head biceps tendinitis 4. Left shoulder acromioclavicular joint osteoarthritis Procedure(s) Performed: 1. Left shoulder arthroscopic rotator cuff repair 2. Left shoulder arthroscopic subacromial decompression 3. Left shoulder arthroscopic biceps tenodesis 4. Left shoulder arthroscopic Yoselin procedure Implants: 2Arthrex 4.75 swivel lock anchors Anesthesia: GETA, regional (Interscalene block) Surgeon: Shadi Goodwin Weed Burner #1: Christ Maldonado Estimated Blood Loss (ml): 11 Pathology: none sent Condition: stable Disposition: PACU Indications for Procedure: 62-year-old patient seen with progressive left shoulder pain. After treatment options were discussed, she elected to proceed with arthroscopy. Operative Findings: See description of procedure Description of Procedure: Patient underwent an interscalene block by department of anesthesia. The patient was then taken to the operative suite. The patient underwent a general anesthetic by the department of anesthesia. The patient was placed into a lateral position and secured. There was appropriate padding of the bony prominence. Left shoulder was then prepped and draped in normal sterile orthopedic fashion. We placed the extremity in 10 pounds of longitudinal traction. A posterior incision was now made for a posterior working portal site. The trocar and cannula were inserted into the glenohumeral joint. Arthroscopy was initiated. Spinal needle was now inserted anteriorly, to ascertain the anterior working portal site. An incision was now made in that area, a trocar was inserted followed by a probe. There was hyperemia partial tearing long head biceps tendon consistent with bicipital tendinitis. There were grade 1 chondral malacia changes along the anterior aspect of the glenoid fossa without significant tearing. The labrum was probed and was found to be stable. At this point I decided post with arthroscopic biceps tenodesis. I enlarged my anterior portal site and used to cannula. I now passed a suture through the biceps tendon to create a loop intact type stitch. I then released the biceps tendon from the superior glenoid labrum area. With the assistance of Jean HUNT I now punched a hole at the interval of the supraspinatus and subscapularis for our anchor. I now passed the suture through the eyelet of a Arthrex 4.75 swivel lock anchor. I placed the eyelet into the pre-punch hole and held in position while Jean HUNT tension the suture and deployed the anchor with good fixation noted. The residual suture limb was clipped. There was a stable appearing biceps tenodesis. Instruments were now removed from the glenohumeral joint. Utilizing the posterior working portal site, the trocar and cannula were inserted into the subacromial space. Arthroscopy initiated. I made an incision 2 fingerbreadths lateral to the acromion. I introduced my trocar followed by my ArthroCare ablator. I now began ablating thick subacromial bursal tissue, which exposed the undersurface of the anterior acromion. There was diminished subacromial space. There was a very prominent anterior acromion. A motorized bur was introduced and a subacromial decompression was performed. I also excised some osteophytes off the inferior aspect of the distal clavicle. The AC joint was visualized and noted to be fairly arthritic. The motorized bur was introduced in the anterior portal site and a Yoselin procedure was performed without difficulty, decompressing the AC joint nicely. I turned my attention to the rotator cuff. There was a 1 cm tear along the distal supraspinatus area. I debrided the margins getting down to stable tendon tissue. The defect measured a little over a centimeter and was freely mobile over the footprint. I abraded the footprint with a motorized bur. With the assistance of Jean HUNT I passed 2 everted mattress sutures through good bites of rotator cuff tendon. I now passed an additional suture length anteriorly. A punch hole and the footprint area for insertion of an anchor. All 5 limbs of suture were passed through the eyelet of an Arthrex 4.75 swivel lock anchor. I placed the eyelet into our pre-punch hole. I held it in position while Jean HUNT tensioned all 5 limbs of suture and deployed the anchor with good fixation noted. All residual suture limbs were now clipped. We had good compression of the tendon along the entire footprint. Instruments now removed from the portal sites. All portal sites were approximated with nylon suture. Sterile dressings were applied followed by a shoulder sling. Christ HUNT assisted in this complex case. The patient was awakened, transferred to a bed, and taken to recovery in stable condition.
[2023-05-16 11:27] VITALS: TEMP 96.8
[2023-05-16 11:36] VITALS: RESP 16
[2023-05-16 12:11] VITALS: BP 127/79; PULSE 76
--- NOTE | 2023-05-16 13:52 | P.ANPRN ---
Procedure Note - Anesthesia - Nerve Block Performed Left Interscalene Time Out Performed: Yes () Date of Procedure: 05/16/23 Procedure Start Time: Procedure Stop Time: Location of Patient: PreOp Indication: Acute Post-Operative Pain, Requested by Surgeon (Dr Goodwin) Sedation Type: Sedate with meaningful contact maintained Preparation: Sterile Prep Position: Supine Catheter: None Needle Types: Pajunk Needle Gauge: 21 Ultrasound used to visualize needle placement: Yes Ultrasound used to observe medication spread: Yes Injectate: 0.5% Ropivacaine (see comment for volume) (20cc) Pain Paresthesia on Injection Noted: No Resistance on Injection: Normal Image Stored and Saved: Yes Events: Uneventful and Well Tolerated
== END 2023-05-16 12:37 | disposition home or self-care (01) ==
LOC: OR 08:10
PROVIDERS: ATTEND Orthopaedic Surgery
DX: M75.42 Impingement syndrome of left shoulder (principal); M75.102 Unspecified rotator cuff tear or rupture of left shoulder, not specified as traumatic; M19.012 Primary osteoarthritis, left shoulder; G89.18 Other acute postprocedural pain; I10 Essential (primary) hypertension; E78.5 Hyperlipidemia, unspecified; E11.9 Type 2 diabetes mellitus without complications; Z79.84 Long term (current) use of oral hypoglycemic drugs; Z88.0 Allergy status to penicillin; Z88.1 Allergy status to other antibiotic agents; Z79.899 Other long term (current) drug therapy
CPT/HCPCS: 64415; 29827; 29826; 29828; C1713 ×3; C1894; J2250; J0330; J1100; J2710; J0690; J2405; J3010; J2795; J2704; J2001; J2371

== ENCOUNTER → 2023-09-27 | Outpatient (CLI) | payer BC | END | disposition home or self-care (01) | LOC: LABPAT 15:29 | PROVIDERS: ATTEND Orthopaedic Surgery | DX: Z01.812 Encounter for preprocedural laboratory examination (principal); Z22.322 Carrier or suspected carrier of Methicillin resistant Staphylococcus aureus; M16.12 Unilateral primary osteoarthritis, left hip | CPT/HCPCS: 86850; 86900; 86901; 87070 ==

== ENCOUNTER 2023-10-08 08:00 | Day surgery (SDC) | payer BC ==
--- NOTE | 2023-10-07 22:23 | HP ---
HISTORY AND PHYSICAL DATE OF SURGERY: 10/08/2023. HISTORY OF PRESENT ILLNESS: Cheryl Monsalve is a 63-year-old patient seen with symptomatic left hip osteoarthritis, failing conservative treatment measures. We discussed options. The patient elected to proceed with direct anterior left total hip arthroplasty. Consent was obtained. Medical clearance was provided by Dr. Fajardo. PAST MEDICAL HISTORY: Hypertension, bii-fwxzpec-kixyswgjb diabetes, hyperlipidemia. PAST SURGICAL HISTORY: Noncontributory. DAILY MEDICATIONS: 1. Metformin. 2. Omeprazole. 3. Lisinopril. 4. Simvastatin. ALLERGIES: Augmentin, clindamycin. SOCIAL HISTORY: She denies tobacco use. PHYSICAL EVALUATION OF THE LEFT HIP: She has diffuse tenderness about the hip girdle. Limited range of motion with severe pain. Positive hip impingement sign. Straight-leg raise is negative. Distal neurovascular exam is intact. IMAGING STUDIES: Radiographs of the left hip reveal severe osteoarthritic changes. IMPRESSION: 1. Left hip osteoarthritis. 2. Hypertension. 3. Hyperlipidemia. 4. Pph-xrwwwdg-mqqjscgfs diabetes. PLAN: Direct anterior left total hip arthroplasty. MMODL / IJN: [id number] /
[~2023-10-08 08:00] MED LIST changes: +ACETAMINOPHEN TAB 500 MG TAB PO PRN; -DEXAMETHASONE SOD PHOSPHATE 4 MG/ML 1 ML VIAL IV ONE; -HYDROmorphone 0.5 MG/0.5 ML SYRINGE IVP PRN; -LACTATED RINGERS 1,000 ML IV SCH; -LIDOCAINE 1% (10MG/ML) FOR IV START INTRADERMA PRN; +MELOXICAM 7.5 MG TAB PO PRN; -ONDANSETRON 4 MG/2 ML VIAL IVP ONE; +TRANEXAMIC 1,000 MG/100ML-NACL 1,000 MG in SALINE 1 100ML.BAG IVPB PRN; -droPERidol 5 MG/2 ML VIAL IVP ONE
[2023-10-08] MEDS ORDERED: LACTATED RINGERS 1,000 ML IV SCH (08:04)
[2023-10-08] MEDS ORDERED: MIDAZOLAM 2 MG/2 ML VIAL IV PRN (08:04)
[2023-10-08] MEDS ORDERED: DEXAMETHASONE SOD PHOSPHATE 4 MG/ML 1 ML VIAL IV ONE (08:04)
[2023-10-08] MEDS ORDERED: ONDANSETRON 4 MG/2 ML VIAL IVP ONE (08:04)
[2023-10-08] MEDS ORDERED: fentaNYL (PF) 50 MCG/ML 2 ML AMP IV PRN (08:04)
[2023-10-08] MEDS ORDERED: LACTATED RINGERS 1,000 ML IV ONE (08:20)
[2023-10-08 08:49] LABS: Glucose,Whole Blood 141 mg/dL (70-110)
[2023-10-08] MEDS ORDERED: fentaNYL (PF) 50 MCG/1 ML VIAL IVP ONE (09:16)
[2023-10-08] MEDS ORDERED: MIDAZOLAM 2 MG/2 ML VIAL IVP ONE (09:16)
[2023-10-08] MEDS ORDERED: ROPIVACAINE 5 MG/ML 30 ML VIAL ONE (09:55)
[2023-10-08] MEDS ORDERED: PROPOFOL 10 MG/ML 20 ML VIAL IV ONE (09:55)
[2023-10-08] MEDS ORDERED: LIDOCAINE 1% INJ 10MG/ML (20 ML MDV) ONE (09:55)
[2023-10-08] MEDS ORDERED: PHENYLEPHRINE 10 MG/ML VIAL ONE (09:55)
[2023-10-08] MEDS ORDERED: NEOSTIGMINE 1 MG/ML 10 ML VIAL ONE (09:55)
[2023-10-08] MEDS ORDERED: TRANEXAMIC 1,000 MG/100ML-NACL PREMIX BAG ONE (09:55)
[2023-10-08] MEDS ORDERED: MIDAZOLAM 2 MG/2 ML VIAL ONE (09:55)
[2023-10-08] MEDS ORDERED: SUCCINYLCHOLINE CHLORIDE 200 MG/10 ML VIAL IV ONE (09:55)
[2023-10-08] MEDS ORDERED: fentaNYL (PF) 50 MCG/ML 2 ML AMP ONE (09:55)
[2023-10-08] MEDS ORDERED: ROCURONIUM 10 MG/ML (5 ML VIAL) IV ONE (09:55)
[2023-10-08] MEDS ORDERED: GLYCOPYRROLATE 0.2 MG/ML 2 ML VIAL ONE (09:55)
[2023-10-08] MEDS ORDERED: ceFAZolin 1,000 MG in SODIUM CHLORIDE 0.9% 1,000 ML IRRIGATION ONE (10:04)
--- NOTE | 2023-10-08 11:10 | P.ANPRN ---
Procedure Note - Anesthesia - Nerve Block Performed Left Dayo Single Time Out Performed: Yes (09) Date of Procedure: 10/08/23 Procedure Start Time: Procedure Stop Time: Location of Patient: PreOp Indication: Acute Post-Operative Pain, Requested by Surgeon Specifically requested for management of pain by DrChanning: Shadi Goodwin Sedation Type: Sedate with meaningful contact maintained Preparation: Sterile Prep Position: Supine Catheter: None Needle Types: Pajunk Needle Gauge: 21 Ultrasound used to visualize needle placement: Yes Ultrasound used to observe medication spread: Yes Injectate: 0.5% Ropivacaine (see comment for volume) (30cc) Blood Aspirated: No Pain Paresthesia on Injection Noted: No Resistance on Injection: Normal Image Stored and Saved: Yes Events: Uneventful and Well Tolerated
--- NOTE | 2023-10-08 11:38 | P.OP ---
Date of Procedure: 10/08/23 Preoperative Diagnosis: Left hip osteoarthritis Postoperative Diagnosis: Left hip osteoarthritis Procedure(s) Performed: Direct anterior left total hip arthroplasty Implants: 1. Depuy Corail 125 to collar size 12 press-fit femoral stem 2. Depuy pinnacle 52 mm press-fit acetabular shell 3. Depuy pinnacle neutral polyethylene acetabular liner 36 mm ID 52 mm OD 4. Biolox delta ceramic femoral head +1.5 36 mm Anesthesia: GETA, regional (erector spinae block) Surgeon: Shadi Goodwin Stock Grader #1: Christ Maldonado Estimated Blood Loss (ml): 70 Pathology: none sent Condition: stable Disposition: PACU Indications for Procedure: 63-year-old patient seen with symptomatic left hip osteoarthritis. After treatment options were discussed, she elected to proceed with direct anterior left total hip arthroplasty. Operative Findings: See description of procedure Description of Procedure: The patient was taken to the operative suite. Patient underwent a general anesthetic by the department of anesthesia. Patient was then transferred to the [place] table. Patient was given preoperative IV antibiotics and TXA. Both lower extremities were placed in standard leg spars. The hip was then prepped and draped in the normal sterile orthopedic fashion. A standard anterior incision was made beginning 3 cm lateral and 1 cm distal to the ASIS extending 10 cm. Dissection was then carried down through the subcutaneous soft tissues down to the fascia overlying the tensor fascia emiliano. An incision was now made through the fascia. Careful dissection was taken down exposing the tensor fascia emiliano muscle. A Cobra retractor was now placed along the medial femoral neck and a second one along the lateral femoral neck. The venous circumflex vessels were now identified, cauterized and clipped. We identified the anterior hip capsule. An incision was made through the hip capsule along the lateral border. I performed a partial anterior capsulectomy. Retractors were now placed around the femoral neck itself. A femoral neck cut was now made with a sagittal saw. It was completed with an osteotome at the lateral neck area. The femoral head was now removed without difficulty. The extremity was now rotated to 60 of external rotation. It was locked in position. Residual labrum was now debrided out. Serial reaming was performed of the acetabulum while Jean HUNT assisted holding an anterior retractor for exposure. Once we reached the appropriate size and a trial was position and fit nicely. The appropriate size was now chosen opened and made available. It was introduced into the acetabulum without difficulty. The C-arm/fluoroscopy was now brought into the operative field. We made sure we had a true AP pelvic view. We now under direct C-arm/fluoroscopy introduced into the acetabular component with appropriate version and inclination. I held the cup in appropriate position well Jean HUNT used a mallet to seat the acetabular component. I noted the component now to be well seated and stable. Acetabular cup introduce her was removed. The C-arm was pulled back. An appropriate liner was introduced and clicked into position. It was felt to be stable. At this point retractors were removed. The extremity was now placed into 140 external rotation with no traction. The leg was now dropped to the ground and adducted. Appropriate retractors were now positioned along the proximal femur. We also placed our femoral look into position. Additional capsular releasing was performed to gain access to the proximal femur. We now used a box osteotome. A canal finder was now utilized. Serial broaching was now performed with the assistance of Jean HUNT tapping the broaches down with a mallet while held the broach in appropriate rotation and position. This was done until we reached the appropriate size with good overall rotational stability. Appropriate calcar planing was performed. A trial head/neck was placed into position. The hip was now reduced. The C- arm/fluoroscopy was brought back into the operative field. I obtained an AP pelvis was demonstrated adequate leg length alignment. The trial components appeared appropriately sized and positioned. The C-arm/fluoroscopy was pulled back. Retractors were repositioned and the hip was dislocated. The leg was again taken down to the ground and adducted. Appropriate retractors were repositioned as well as the femoral hook. All trial components were removed. The femoral implant was opened along with the femoral head. The femoral implant was introduced on the appropriate handle into our pre-broached area. I held the component position well Jean HUNT used a mallet to seat the femoral component. The femoral component was now noted to be well seated and stable.. The femoral head was introduced with good positioning and fixation noted. Retractors were now removed. The hip was now reduced. There appeared be good positioning of the hip confirmed on intraoperative fluoroscopy. Spot films were obtained to document this. A second gram of TXA was given. Bipolar cautery had been utilized intermittently through the procedure for hemostasis. The wound was irrigated copiously with pulse lavage mechanical irrigation. The fascia was repaired with Vicryl suture. The subcutaneous soft tissues were repaired in layers with Vicryl suture. The skin was approximated with pernio/Dermabond. Sterile dressings were applied. Patient was then awakened, transferred to a bed and taken to recovery in stable condition. Jean HUNT assisted with the complex procedure.
[2023-10-08] MEDS ORDERED: HYDROmorphone 1 MG/ML 1 ML SYRINGE IVP PRN (11:39)
[2023-10-08] MEDS ORDERED: NALOXONE 0.4 MG/ML 1 ML VIAL IV PRN (11:39)
[2023-10-08] MEDS ORDERED: HYDROcodone/APAP 7.5-325MG 1 EACH TAB PO PRN (11:39)
[2023-10-08] MEDS ORDERED: HYDROcodone/APAP 5-325MG 1 EACH TAB PO PRN (11:39)
[2023-10-08] MEDS ORDERED: ONDANSETRON 4 MG/2 ML VIAL IVP PRN (11:39)
[2023-10-08] MEDS ORDERED: HYDROmorphone 0.5 MG/0.5 ML SYRINGE IVP PRN ×2 (11:39)
[2023-10-08 12:18] VITALS: TEMP 97.2
[2023-10-08] MEDS: HYDROmorphone 0.5 MG/0.5 ML SYRINGE IVP PRN ×2 (12:20→12:33)
--- NOTE | 2023-10-08 12:40 | XR ---
EXAMINATION TYPE: XR Hip Limited LT DATE OF EXAM: 10/08/2023 COMPARISON: NONE HISTORY: Postop TECHNIQUE: One view submitted. FINDINGS: There is postsurgical change compatible hip replacement surgery. IMPRESSION: 1. Postoperative change.
--- NOTE | 2023-10-08 12:53 | FL ---
EXAMINATION TYPE: FL guidance operating room DATE OF EXAM: 10/08/2023 HISTORY: Fluoroscopy time Total dose area product (DAP) in uGy*m?, mGy*cm? (or similar): 0.6275 IMPRESSION: 1. Fluoroscopy time.
[2023-10-08] MEDS: LACTATED RINGERS 1,000 ML IV ONE ×2 (13:00→13:13)
[2023-10-08 13:37] LABS: Glucose,Whole Blood 198 mg/dL (70-110)
[2023-10-08 14:25] VITALS: RESP 16
[2023-10-08 14:51] VITALS: BP 120/78; PULSE 74
== END 2023-10-08 16:46 | disposition home health service (06) ==
LOC: OR 08:00
PROVIDERS: ATTEND Orthopaedic Surgery
DX: M16.12 Unilateral primary osteoarthritis, left hip (principal); I10 Essential (primary) hypertension; E11.9 Type 2 diabetes mellitus without complications; E78.5 Hyperlipidemia, unspecified; K21.9 Gastro-esophageal reflux disease without esophagitis; Z79.84 Long term (current) use of oral hypoglycemic drugs; Z79.899 Other long term (current) drug therapy; Z88.0 Allergy status to penicillin; Z88.1 Allergy status to other antibiotic agents
CPT/HCPCS: 27130; 97530; 97161; 64447; 73501; C1776; J2250; J0330; J1100; J2710; J0690 ×2; J2405; J2001; J3010 ×2; J2795; J2704; J1170; J2371

== ENCOUNTER → 2024-03-25 | Outpatient (CLI) | payer BC ==
--- NOTE | 2024-03-25 20:12 | MR ---
EXAMINATION TYPE: MR cervical spine wo con DATE OF EXAM: 03/25/2024 COMPARISON: None HISTORY: 63 year-old female M54.2, Chronic neck pain, headaches, limited ROM, RUE weakness. TECHNIQUE: Multiplanar, multisequence images of the cervical spine were acquired without contrast. FINDINGS: No craniocervical junction abnormality, predental space widening, or prevertebral soft tissue swellin g. Reversal of the normal cervical lordosis. Degenerative grade 1 anterolisthesis C3-C4. Degenerative grade 1 retrolisthesis C4-C5, C5-C6, C6/C7. Moderate disc/endplate degenerative change especially C4-C7 levels with disc space narrowing, disc de siccation, disc osteophyte complex formation. Some edematous Modic type I endplate change is present here as well as specially towards the right. Corresponding ligamentum flavum thickening resulting in variable mild and moderate spinal canal steno ses; spinal canal narrowing down to 5 mm AP dimension at C5-C6, 7 mm at C4-C5, and 8 mm at C6-C7. The re is slight flattening of the dorsal cord at C5-C6 but no aayush cord compression or increased cord s ignal change. Multilevel moderate to severe facet and uncovertebral joint arthropathy. At C2-C3, mild left neural foraminal stenosis. At C3-C4, mild bilateral neural foraminal stenosis. At C4-C5, moderate bilateral neural foraminal stenosis. At C5-C6, severe right and moderate to severe left neural foraminal stenosis. At C6-C7, moderate left and mild right neural foraminal stenosis. No prevertebral or paravertebral soft tissue abnormal body. IMPRESSION: 1. Moderate to advanced multilevel spondylotic change, greatest from C4 through C7 levels. 2. Reversal of the normal cervical lordosis with degenerative grade 1 spondylolisthesis from C3 throu gh C7 levels. 3. Overall moderate spinal canal stenosis at C5-C6 and mild at C4-C5 and C6-C7. Slight flattening of both the dorsal and ventral cord at C5-C6 but without aayush cord compression or myelopathic cord sign al change. 4. Variable mild to moderate neural foraminal stenoses as outlined above. Severe on the right at C5-C 6 and moderate to severe on the left here.
== END ==
LOC: RADMRIMAIN 13:02
PROVIDERS: ATTEND Orthopaedic Surgery
DX: M47.812 Spondylosis without myelopathy or radiculopathy, cervical region (principal); M43.12 Spondylolisthesis, cervical region; M48.02 Spinal stenosis, cervical region
CPT/HCPCS: 72141

== ENCOUNTER → 2024-06-17 | Outpatient (CLI) | payer BC ==
--- NOTE | 2024-06-17 13:31 | CT ---
EXAMINATION TYPE: CT cervical spine wo con DATE OF EXAM: 06/17/2024 COMPARISON: MRI 03/25/2024 HISTORY: Cervicalgia CT DLP: 486 mGycm Automated exposure control for dose reduction was used. TECHNIQUE: CT scan of the cervical spine is obtained without contrast, axial images are obtained, sa gittal and coronal reformatted images are also reviewed. FINDINGS: There is a multilevel degenerative disc disease with grade 1 anterolisthesis C3-C4. There i s multilevel facet arthropathy. Severe degenerative disc disease C4-5, C5-6 and C6-C7. Loss of the no rmal cervical lordosis. Curvature of the cervical thoracic spine. Mild changes of chronic sinusitis. At C2-C3 no canal stenosis. There is facet arthropathy greater on the left with mild left foraminal e ncroachment. At C3-C4 there is bilateral uncovertebral joint hypertrophy and facet arthropathy with moderate to se charity bilateral foraminal encroachment. At C4-C5 there is severe degenerative disc disease with posterior disc osteophyte complex, facet arth ropathy and bilateral uncovertebral joint hypertrophy. Borderline to mild central stenosis and severe bilateral foraminal encroachment. At C5-C6 there is severe degenerative disc disease with posterior disc osteophyte complex, facet arth ropathy and bilateral uncovertebral joint hypertrophy. Mild central stenosis and severe bilateral for aminal encroachment. At C6-C7 there is central disc broad-based bulging with uncovertebral joint hypertrophy and facet art hropathy. Bilateral foraminal encroachment. IMPRESSION: 1. Grade 1 anterolisthesis C3-C4 with multilevel severe degenerative disc disease, facet arthropathy and foraminal encroachment as discussed above.
== END | disposition home or self-care (01) ==
LOC: RADCTMAIN 13:00
PROVIDERS: ATTEND Orthopaedic Surgery
DX: M54.2 Cervicalgia
CPT/HCPCS: 72125

== ENCOUNTER → 2024-07-15 | Outpatient (CLI) | payer BC | END | disposition home or self-care (01) | LOC: LABPAT 10:02 | PROVIDERS: ATTEND Orthopaedic Surgery | DX: Z01.812 Encounter for preprocedural laboratory examination (principal); M47.22 Other spondylosis with radiculopathy, cervical region; M48.02 Spinal stenosis, cervical region; Z22.322 Carrier or suspected carrier of Methicillin resistant Staphylococcus aureus | CPT/HCPCS: 86850; 86900; 86901; 87070 ==

== ENCOUNTER 2024-07-21 10:37 | Day surgery (SDC) | payer BC ==
--- NOTE | 2024-07-20 20:47 | P.HPOR ---
History of Present Illness H&P Date: 07/16/24 .D:Date: 07/16/24 : 07:21pm .T:Title: *PREOPERATIVE ASSESSMENT Spine Surgery Risk Review Ms. Monsalve is presenting for evaluation of neck and bilateral upper ex tremity pain, bilateral upper extremity numbness and tingling. It was my pleasure to have seen and examined Ms. Monsalve. In our visit today we have had a chance to go over subjective complaints, physical examination findings and treatments including the natural course history without intervention and various interventional options. The patients imaging demonstrates: XRay Cervical multiview (Lateral, Flexion, Extension, AP, Oblique) 6 views taken at [facility] on 03/04/24: -Images re-reviewed with the patient today. Moderate to severe spondylitic and degenerative changes C4-C7 with straightening of the normal lordosis.Complete disc collapse C4- C5, C5-C6. Vertebral body heights are preserved.Grade 1 retrolisthesis C4 on to C5, C5 and C6. No subluxation between flexion and extension films.No acute osseous abnormalities. [facility]: -Images re-reviewed with the patient today. IMPRESSION: 1. Moderate to advanced multilevel spondylotic change, greatest from C4 through C7 levels. 2. Reversal of the normal cervical lordosis with degenerative grade 1 spondylolisthesis from C3 through C7 levels. 3. Overall moderate spinal canal stenosis at C5-C6 and mild at C4-C5 and C6-C7. Slight flattening of both the dorsal and ventral cord at C5-C6 but without aayush cord compression or myelopathic cord signal change. 4. Variable mild to moderate neural foraminal stenoses as outlined above. Severe on the right at C5-C6 and moderate to severe on the left here. On physical exam, Ms. Monsalve demonstrates: A continued ache-like shooting pain around the posterior neck that radiates down into the bilateral upper extremities. The patient states her bilateral upper extremity pain is associated wit numbness and tingling. She reports her symptoms have significantly worsened over the last several months. The patient states her symptoms have become debilitating over the last 1 month. She reports severe sleep disturbances related to her ongoing pain and associated symptoms. I have explained to the patient that as their condition progresses it will cause further neurological deficits and eventual paralysis. Based on the patients imaging, physical exam, and the rapid progression and disabling nature of their symptoms, at this time I recommend surgery in the form of a: C3-C7 ANTERIOR CERVICAL DECOMPRESSION AND FUSION. I discussed the risk and benefits of this procedure at length with Ms. Monsalve. The patient agreed to considered pursuing the procedure abovementioned.Prior to surgery, she should follow up with her PCP (Cardio, ID, IM etc) for clearance. Questions were invited and answered, and the patient wishes to proceed as outlined below. IMPRESSION: It was my pleasure to have seen and examined Cheryl. I reviewed the patient's clinical syndrome, physical findings, and imaging studies during the appointment today. It is my impression that the patient has a diagnosis of. 1. C3-7 spondylosis and stenosis, severe 2. Bilateral upper extremity radiculopathy 3. Neck pain Currently, I am recommendin.C3-C7 ANTERIOR CERVICAL DECOMPRESSION AND FUSION 2.Follow up with PCP for surgical clearance 3.Review of surgical risks and benefits as well as an educational packet on the proposed surgical procedure. Risks: All surgical procedures come with inherent risks, including those related to positioning, anesthesia, intraoperative findings, and postoperative complications. It is important to understand that surgery does not come with any guarantee of a successful outcome as complications and adverse events are always possible. The patient was given a handout in office today discussing the surgical procedure and risks associated with the intervention, both of which were discussed with the patient. These risks include but are not limited to the foll owing: * Experiencing same, different or even worse symptoms in back, neck, arms, or legs compared to before surgery. Requiring further surgery or other forms of treatment presently or at some time in the future at same or other levels of the intended spine surgery. On an extreme but fortunately relatively rare basis severe complication such as blindness, stroke, heart attack, temporary and/or permanent nerve injury, paralysis, coma, or may occur, sometimes without known explanation. Surgical complications may include but are not limited to risk of infection, fluid accumulation in the surgical dissection site, including a seroma or hematoma, that requires additional surgery, wound drainage, bleeding, new numbness or weakness, vision changes/loss, spinal fluid leakage, non-healing a nd/or infected incision, headaches, difficulty or inability to swallow, hoarseness, hemopneumothorax, pneumothorax, impotence, retrograde ejaculation, vaginal dryness; injury to nerves, spinal cord, blood vessels, lymphatics or other vital organs (i.e., bowel injury, injury to the great vessels); heterotopic bone formation; complications related to the hardware such as screws, rods, cages including misplaced hardware, device failure, instrumentation at the wrong spine level, hardware fracture/breakage, or hardware loosening; vertebral failure of the spinal column above or below the newly placed hardware; retained surgical instrumentations or devices and the need for further surgery. * Medical risks of the planned spine surgery include but are not limited to generalized Infections to the whole body or local areas outside of the surgical site (sepsis), heart attack, bleeding, anaphylaxis, meningitis, seizure, epilepsy, hearing loss, burn wallace, laceration of the head or other areas of the body, bruising, hypersensitivity of the skin, bladder over distension; allergic reaction; shoulder injury related to positioning; fat, blood and air clots to other areas of the body like heart, lungs, brain; failure of internal organs such as lungs, kidneys, liver and excessive bleeding. If blood transfusions are necessary, note that transfusions may cause intolerance reactions such as anaphylaxis or other complex reactions. Despite best efforts, the results of spine surgery might not heal in terms of bone, soft tissues such as skin, fascia, ligaments, and joints. Additionally, in order to achieve best possible results, spine surgery may be carried out beyond the initially planned levels and involve decompression, fusion including insertion of hardware at levels other than the original intended area of surgical interest change some portions of the procedure in order to ensure the best possible outcomes. With spine surgery and spinal fusion, there are different off label uses of instrumentation (devices, implants and hardware) as well as biological substances (bone morphogenic proteins, demineralized bone matrix) as well as using extra bone from allograft sources (i.e. cadaver bone) or autograft (iliac crest bone, ribs, or the spine itself). The patient has been given information about these practices and their inherent risks and benefits. [facility] is an educational center that serves as a training facility for neurosurgical and orthopedic LOCKSTITCH WAISTLINE JOINER and Nursing students. Physician assistants are medically trained surgical providers who function in the outpatient, inpatient, and operating room setting under the direct supervision of the attending surgeon. [facility] has multiple operating rooms with single and overlapping rooms running daily. They currently function under the required guidelines as produced by the Senate Finance Committee with regards to the overlapping rooms and will continue to comply with changes to this policy as they occur. The requirements include and are complied with as follows: (1) the critical portions of the overlapping rooms will not occur at the same time, (2) the attending physician will be physically present during the critical portions of the procedure and immediately available during the entire case, and (3) a back-up attending is designated should the primary attending not be immediately available. The patient has had a chance to review all the listed information, has been given print outs detailing this information, and has had all his/her questions answered to their satisfaction. It was my pleasure to have seen and examined Ms. Monsalve. In our visit today we have had a chance to go over my understanding of our patient's current condition, the natural course history without intervention and various interventional options. Questions were invited and answered, and the patient wishes to proceed as outlined above. I have seen and examined the patient for 25 minutes and we have spent more than 50% of the time in repeat and detailed counseling about the patient's condition, its natural course history with out and as much as can be predicted with surgery and re-review of various surgical treatment options. In conclusion, Ms. Monsalve requested we proceed with the above suggested surgery and are willing to accept risks and limitations of the suggested surgery as nature of the disease process and our best attempts at treatment for the condition. Thank you again for allowing us to be part of your patient's care. Please don't hesitate to contact me if you have any further questions. FOLLOW UP: Preoperative Evaluation PATIENT EDUCATION: Medications Reviewed: YES In our visit today Ms. Monsalve and I have had a chance to go over my understanding of the patient's current condition, the natural course history without intervention and various interventional options. Questions were invited and answered, and the patient wishes to proceed as outlined above. I will be sure to keep you updated after Ms. Monsalve returns here for further follow-up. Thank you again for your referral. Please do not hesitate to contact me if you have any further questions. Signed and authenticated by: Rolly Rivera [facility] [address] [facility], [address] [address] . This message is confidential, intended only for the named recipient(s) and may contain information that is privileged or exempt from disclosure under applicable law. If you are not the intended recipient(s), you are notified that the dissemination, distribution or copying of this information is prohibited. If you received this message in error, please notify the sender then delete this message. Past Medical History Past Medical History: Diabetes Mellitus, GERD/Reflux, Hyperlipidemia, Hypertension, Osteoarthritis (OA) History of Any Multi-Drug Resistant Organisms: None Reported Past Surgical History: Cholecystectomy, Joint Replacement, Orthopedic Surgery, Tubal Ligation, Uterine Ablation Additional Past Surgical History / Comment(s): ryley carpal tunnel, left knee scope, rt foot, rt rotator cuff, and pain pump removal 3 days post op, right knee replacement, left hip replacement Past Anesthesia/Blood Transfusion Reactions: No Reported Reaction Smoking Status: Never smoker - Past Family History Brother(s) Family Medical History: Deep Vein Thrombosis (DVT) Mother Family Medical History: Blood Disorder Additional Family Medical History / Comment(s): thrombocytopenic purpura Medications and Allergies Home Medications Medication Instructions Recorded Confirmed Type Nabumetone [Relafen] 750 mg PO BID 02/16/15 07/14/24 History Simvastatin [Zocor] 40 mg PO HS 02/16/15 07/14/24 History lisinopriL [Zestril] 5 mg PO HS 02/16/15 07/14/24 History metFORMIN HCL [Glucophage] 500 mg PO BID 02/16/15 07/14/24 History Omeprazole 20 mg PO DAILY 02/27/23 07/14/24 History Allergies Allergy/AdvReac Type Severity Reaction Status Date / Time clindamycin HCl Allergy Rash/Hives Verified 07/14/24 17:05 [From Cleocin] clindamycin palmitate HCl Allergy Rash/Hives Verified 07/14/24 17:05 [From Cleocin] clindamycin phosphate Allergy Rash/Hives Verified 07/14/24 17:05 [From Cleocin] Physical Examination Osteopathic Statement: *. No significant issues noted on an osteopathic structural exam other than those noted in the History and Physical/Consult.
[~2024-07-21 10:37] MED LIST changes: -ACETAMINOPHEN TAB 500 MG TAB PO PRN; +LIDOCAINE 1% (10MG/ML) FOR IV START INTRADERMA PRN; -MELOXICAM 7.5 MG TAB PO PRN; +ONDANSETRON 4 MG/2 ML VIAL IVP PRN
[2024-07-21] MEDS: DEXAMETHASONE SOD PHOSPHATE 4 MG/ML 1 ML VIAL IV ONE (11:02)
[2024-07-21] MEDS: ONDANSETRON 4 MG/2 ML VIAL IVP PRN (11:02)
[2024-07-21] MEDS: ACETAMINOPHEN TAB 500 MG TAB PO PRN (11:02)
[2024-07-21] MEDS: GABAPENTIN 300 MG CAP PO PRN (11:03)
[2024-07-21] MEDS: LACTATED RINGERS 1,000 ML IV SCH (11:10)
[2024-07-21] MEDS: IV FLUID CONTINUATION 1,000 ML IV ONE ×2 (11:10→11:11)
[2024-07-21 11:11] LABS: Glucose,Whole Blood 124 mg/dL (70-110)
[2024-07-21] MEDS ORDERED: SUCCINYLCHOLINE CHLORIDE 200 MG/10 ML VIAL IV ONE (12:57)
[2024-07-21] MEDS ORDERED: TRANEXAMIC 1,000 MG/100ML-NACL PREMIX BAG ONE (12:57)
[2024-07-21] MEDS ORDERED: fentaNYL (PF) 50 MCG/ML 2 ML AMP ONE (12:57)
[2024-07-21] MEDS ORDERED: NEOSTIGMINE 1 MG/ML 10 ML VIAL ONE (12:57)
[2024-07-21] MEDS ORDERED: GLYCOPYRROLATE 0.2 MG/ML 2 ML VIAL ONE (12:57)
[2024-07-21] MEDS ORDERED: ROCURONIUM 10 MG/ML (5 ML VIAL) IV ONE (12:57)
[2024-07-21] MEDS ORDERED: KETAMINE HCL IN 0.9 % NACL 50 MG/5 ML SYRINGE ONE (12:57)
[2024-07-21] MEDS ORDERED: PROPOFOL 10 MG/ML 20 ML VIAL IV ONE (12:57)
[2024-07-21] MEDS ORDERED: LIDOCAINE 1% INJ 10MG/ML (20 ML MDV) ONE (12:57)
[2024-07-21] MEDS ORDERED: MIDAZOLAM 2 MG/2 ML VIAL ONE (12:57)
[2024-07-21] MEDS: THROMBIN (BOVINE) 5,000 UNIT VIAL TOPICAL ONE (13:52)
[2024-07-21] MEDS: GELATIN SPONGE,ABSORB (LARGE) 1 EACH SPONGE MISCELLANE ONE (13:53)
[2024-07-21] MEDS: LACTATED RINGERS 1,000 ML IV ONE ×2 (14:35→15:57)
[2024-07-21] MEDS ORDERED: HYDROmorphone 1 MG/ML 1 ML SYRINGE IVP PRN (16:32)
[2024-07-21] MEDS ORDERED: SENNOSIDES-DOCUSATE SODIUM 1 EACH TAB PO PRN (16:32)
[2024-07-21] MEDS ORDERED: HYDROmorphone 0.5 MG/0.5 ML SYRINGE IVP PRN (16:32)
[2024-07-21] MEDS ORDERED: MAGNESIUM HYDROXIDE 2,400 MG/30 ML CUP PO PRN (16:32)
[2024-07-21] MEDS ORDERED: HYDROcodone/APAP 5-325MG 1 EACH TAB PO PRN (16:32)
[2024-07-21] MEDS: HYDROmorphone 0.5 MG/0.5 ML SYRINGE IVP PRN (17:11)
[2024-07-21] MEDS: droPERidol 5 MG/2 ML VIAL IVP ONE (18:51)
[2024-07-21] MEDS: DEXMEDETOMIDINE/0.9% NACL(PMX) 400 MCG in EMPTY BAG 1 BAG IV SCH (18:51)
[2024-07-21] MEDS: ACETAMINOPHEN TAB 325 MG TAB PO SCH (18:52)
[2024-07-21 20:22] LABS: Glucose,Whole Blood 137 mg/dL (70-110)
--- NOTE | 2024-07-21 21:02 | P.OP ---
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 CERVICAL STENOSIS, SEVERE UE WEAKNESS UE RADICULOPATHY Procedure(s) Performed: * C3-4 ANTERIOR CERVICAL ARTHRODESIS * C4-5 ANTERIOR CERVICAL ARTHRODESIS * C5-6 ANTERIOR CERVICAL ARTHRODESIS * C6-7 ANTERIOR CERVICAL ARTHRODESIS * C3-7 ANTERIOR INSTRUMENTATION 60023 * C3-4, C4-5, C5-6, C6-7 INSERTION OF BIOMECHANICAL DEVICE, CAGE, X4 [id number] USE OF IONM USE OF IO MICROSCOPE Implants: ERIC SECURE C INTERBODY WITH ANTERIOR INSTRUMENTATION PLATE 10MM, 12MM, 14MM SCREW FIXATION BIO4, DBM, AUTOGRAFT Anesthesia: GETA Surgeon: Rolly Madrigal Mogul Operator #1: Oscar Fernandez (WAS PRESENT AND ASSISTED WITH ALL ASPECTS OF THE CASE FROM POSITION TO DRESSING PLACEMENT) Estimated Blood Loss (ml): 50 IV fluids (ml): 1,100 Urine output (ml): 250 Pathology: none sent Condition: stable Disposition: PACU Indications for Procedure: Ms. Monsalve is presenting for evaluation of neck and bilateral upper extremity pain, bilateral upper extremity numbness and tingling. It was my pleasure to have seen and examined Ms. Monsalve. In our visit today we have had a chance to go over subjective complaints, physical examination findings and treatments including the natural course history without intervention and various interventional options. The patients imaging demonstrates: XRay Cervical multiview (Lateral, Flexion, Extension, AP, Oblique) 6 views taken at [facility] on 03/04/24: -Images re-reviewed with the patient today. Moderate to severe spondylitic and degenerative changes C4-C7 with straightening of the normal lordosis.Complete disc collapse C4- C5, C5-C6. Vertebral body heights are preserved.Grade 1 retrolisthesis C4 on to C5, C5 and C6. No sublux ation between flexion and extension films.No acute osseous abnormalities. [facility]25[facility]: -Images re-reviewed with the patient today. IMPRESSION: 1. Moderate to advanced multilevel spondylotic change, greatest from C4 through C7 levels. 2. Reversal of the normal cervical lordosis with degenerative grade 1 spondylolisthesis from C3 through C7 levels. 3. Overall moderate spinal canal stenosis at C5-C6 and mild at C4-C5 and C6-C7. Slight flattening of both the dorsal and ventral cord at C5-C6 but without aayush cord compression or myelopathic cord signal change. 4. Variable mild to moderate neural foraminal stenoses as outlined above. Severe on the right at C5-C6 and moderate to severe on the left here. On physical exam, Ms. Monsalve demonstrates: A continued ache-like shooting pain around the posterior neck that radiates down into the bilateral upper extremities. The patient states her bilateral upper extremity pain is associated wit numbness and tingling. She reports her symptoms have significantly worsened over the last several months. The patient states her symptoms have become debilitating over the last 1 month. She reports severe sleep disturbances related to her ongoing pain and associated symptoms. I have explained to the patient that as their condition progresses it will cause further neurological deficits and eventual paralysis. Based on the patients imaging, physical exam, and the rapid progression and disabling nature of their symptoms, at this time I recommend surgery in the form of a: C3-C7 ANTERIOR CERVICAL DECOMPRESSION AND FUSION. I discussed the risk and benefits of this procedure at length with Ms. Monsalve. The patient agreed to considered pursuing the procedure abovementioned.Prior to surgery, she should follow up with her PCP (Cardio, ID, IM etc) for clearance. Questions were invited and answered, and the patient wishes to proceed as outlined below. Currently, I am recommendin.C3-C7 ANTERIOR CERVICAL DECOMPRESSION AND FUSION Description of Procedure: C3-7 ACDF The patient was seen and examined in the preoperative area. All preoperative protocols were followed. Informed consent was obtained, risks and benefits of the procedure were discussed at length. Risks including bleeding infection damage to the surrounding tissue and risk of reoperation were discussed with the patient. Risk of anesthesia up to and including was discussed with the patient. These are outlined in the risk review. They were willing to accept these risks and all the risks of surgery. The patient was given a weight-based dose of antibiotics in the form of 2 g Ancef. The patient was seen and evaluated by the anesthesia team who deemed them fit for surgery. The site was marked, the patient was willing to proceed with the procedure. The patient was transferred to the operative suite by the Department of anesthesia. They were then drifted off to sleep by the department anesthesia and GETA was performed. The patient tolerated this well. Wilks catheter was placed by nursing staff, a-traumatically. Once confirmation of lines and ventilation the patient was transferred to a Supine Raj table very carefully. All bony prominences including wrists, elbows, axilla, chest, hips, and thighs, and feet were padded very well. Special attention was paid to the genitalia, and these were padded accordingly. SCDs were placed on bilateral lower extremities and were connected. Arms were well padded and placed at their side thumbs up. Once in position, again we confirmed good ventilation capabilities and that lines were running appropriately. The patients Cervical spine was then exposed. 1010s were placed outlining the incision site. Standard alcohol was used to clean the incision site and allowed to dry. C-arm was used to bio-luis manuel the patient and confirm level for incision which was marked with a skin marker. Operative briefing was performed with all teams and everyone in agreement to proceed. The patient was then prepped and draped in a normal sterile fashion. Timeout was then performed, and all parties agreed with the procedure to be performed. Transverse skin incision was then made on the RIGHT side of the patient's neck 3 cm and dissection taken down to the platysma which was split transversely. Sub platysma flap was made, and interval identified between SCM and medial structures. Omohyoid was visualized and protected. Blunt dissection taken down to the anterior cervical fascia which was identified. Blunt probe was then placed and lateral image taken which confirmed levels for operation. These levels were then marked with a bovi. Subperiosteal dissection of the longissimus muscles were then done over these levels identifying uncovertebral joints bilaterally. Retractor was then placed deep to these muscles and held in place with a bed arm. Starting at C6-7, [place] pins were placed into C6 and C7 and gentle distraction taken out over the levels. Javon rongeur used to remove disc material. Operating microscope brought in for visualization. Complete discectomy performed at this level with curette, rongure and pituitary. High speed romain used to remove osteophytes anteriorly and posteriorly until PLL was identified. 6-0 up curette then used to identify the canal and resect the PLL. 2-0 and 3-0 Kerrison used then to remove PLL and disc herniation and performed b/l foraminotomies. Once good decompression was accomplished, meticulous hemostasis was performed. Sizers were then placed under lateral fluoroscopy until the desired height and lordosis. Cage was then selected, packed with autograft and allograft and placed under lateral imaging. Once in good position it was tested and stable. Motors run before and after cage placement were stable. The wound was irrigated, and autograft placed lateral to the cage anteriorly for fusion. [place] pin was then removed from C7 and placed into C5. Gentle distraction taken out over C5-6 now. Complete discectomy done at C5-6 as described including decompression, b/l foraminotomies and PLL resection. Burring of endplates was minimal, osteophytes removed as described. Spacers were then sized and placed under lateral imaging. Cage selected, packed with graft and placed under lateral images. Once in position, meticulous hemostasis performed, and motors remained stable before and after cage placement. AP image confirmed good placement of cages. Wound was irrigated. [place] pin was then removed from C6 and placed into C4. Gentle distraction taken out over C4-5 now. Complete discectomy done at C4-5 as described including decompression, b/l foraminotomies and PLL resection. Burring of endplates was minimal, osteophytes removed as described. Spacers were then sized and placed under lateral imaging. Cage selected, packed with graft and placed under lateral images. Once in position, meticulous hemostasis performed, and motors remained stable before and after cage placement. AP image confirmed good placement of cages. Wound was irrigated. [place] pin was removed from C5 and placed in C3. Gentle distraction taken out over C3-4 now. Complete discectomy done at C3-4 as described including decompression, b/l foraminotomies and PLL resection. Burring of endplates was minimal, osteophytes removed as described. Spacers were then sized and placed under lateral imaging. Cage selected, packed with graft and placed under lateral images. Once in position, meticulous hemostasis performed, and motors remained stable before and after cage placement. AP image confirmed good placement of cages. Wound was irrigated. Anterior instrumentation was then done using a awl, and drill through the aiming jig to ensure within the body. The screws were then measured and placed under lateral fluroscopy. Once in position all locking mechanisms were set and hardware was checked on AP and LAT and was in good position with good resotration of lordosis, alignment and rotation. All locking mechanisms were set, and all screws had good purchase. Final AP and lateral images taken confirmed good placement of hardware and good reduction and anabaptism of height. The wound was then irrigated copiously with NSS. Surgicel placed deep in the wound. A deep drain placed out a separate incision and sewed into place. Layered closure then performed with 3-0 Vicryl in the platysma and subQ tissue. 4-0 Strata fix in the subcuticular tissue. The wound was then cleaned, and dried and skin glue placed. Once glue dried on Opifoam was placed. The patient was then transferred back to their hospital bed a-traumatically. The drain continued to hold suction. They were placed in a soft collar. They were then awakened by the department of anesthesia having tolerated the procedure well without complications.
[2024-07-21] MEDS: GABAPENTIN 300 MG CAP PO SCH (22:11)
[2024-07-21] MEDS: HYDROcodone/APAP 10-325MG 1 EACH TAB PO PRN (22:59)
[2024-07-22] MEDS: CYCLOBENZAPRINE 5 MG TAB PO PRN (05:19)
[2024-07-22 06:17] LABS: Glucose,Whole Blood 154 mg/dL (70-110)
--- NOTE | 2024-07-22 09:08 | CT ---
EXAMINATION TYPE: CT cervical spine wo con CT DLP: 359.3 mGycm, Automated exposure control for dose reduction was used. DATE OF EXAM: 07/22/2024 8:59 AM COMPARISON: 06/17/2024. CLINICAL INDICATION: Female, 64 years old with history of s/p C3-C7 ACDF; [facility], S/P C3-C7 ACDF TECHNIQUE: Axial CT images from the skull base to the inferior aspect of T2 we obtained without intra venous contrast. Coronal and sagittal reformatted images were also reviewed. Contrast used: mL of , (if blank None) Oral contrast used: (if blank None) FINDINGS: Postsurgical changes to the spine with fixation hardware anteriorly at C3-C4 C5-C6 and C7. Hardware a ppears intact. No evidence of fracture. The spinal canal is patent. No evidence of significant neural foraminal stenosis. Drainage tubing terminates anterior to the surgical bed. Few vascular clips and subcutaneous myofascial plane lucency/gas compatible with recent surgery. One of the screws marginall y extend past the posterior aspect of the vertebral body up to 3 mm at C6. IMPRESSION: Postsurgical changes without evidence of fracture or postop complication. [facility], , 07/22/2024 9:06 AM
--- NOTE | 2024-07-22 10:00 | P.PN ---
Subjective Progress Note Date: 07/22/24 Principal diagnosis: 1. C3-7 spondylosis and stenosis, severe 2. Bilateral upper extremity radiculopathy 3. Neck pain Patient seen and examined this morning. Patient is resting comfortably in bed with hard cervical collar in place. She does report that her drain was leaking around the site and that the RN reinforced the dressing. AMBER drain is present with minimal output. We will be back later this afternoon to DC drain and change dressing. Patient does report some improvement of her radiculopathy into the bilateral upper extremities since her procedure. Informed patient that she will be working with physical therapy later today, patient verbalizes understanding. Continue to encourage patient to be up in chair for all meals and to utilize the incentive spirometer while awake. No acute concerns. Objective - Vital Signs Vital signs: Vital Signs Temp 98.3 F 07/22/24 00:49 Pulse 104 H 07/22/24 00:49 Resp 14 07/22/24 00:49 BP 145/80 07/22/24 00:49 Pulse Ox 95 07/22/24 00:49 FiO2 Intake & Output 07/21/24 07/22/24 07/22/24 18:59 06:59 18:59 Intake Total 2750 Output Total 1100 Balance 1650 Weight 72.3 kg 72.3 kg Intake: IV 2750 Output: Urine 1075 Estimated Blood Loss 25 Other: Voiding Method Indwelling Catheter - Exam Inspection: Surgical incision to the anterior cervical spine, dressing is currently clean dry and intact with AMBER drain present with minimal output. Sensation: Sensation is equal, symmetric, bilaterally intact throughout the upper and lower extremities Palpation: Tenderness to palpation around the surgical site. Range of motion: Limited range of motion of the cervical spine due to surgical procedure and hard cervical collar in place. Motor: 4/5 in all major motor groups in the bilateral upper and 5/5 in the lower extremities Special tests: Negative Homans bilaterally. Negative Inocencio bilaterally. Negative clonus bilaterally. Neurovascular: Radial pulse intact, 2+ bilaterally. Cap refill under 3 seconds in digits upper extremities. - Labs Labs: Abnormal Lab Results - Last 24 Hours (Table) 07/21/24 07/21/24 07/22/24 Range/Units 11:08 20:20 06:14 POC Glucose (mg/dL) 124 H 137 H 154 H (70-110) mg/dL Assessment and Plan Assessment: Postop day 1: C3-C7 ACDF Plan: -Appreciate store consultant and team management. -Activity: Ambulate QID, OOB all meals, up and about, limit lifting bending twisting to less than 5 lbs. Use walker or cane if needed for stability. -Daily PT/OT, increase ambulation strength and balance. -Hard cervical collar on at all times, may remove for showers. -Pain control: Adequate at this time -Meds: reviewed -GI ppx: senna, Miralax -DC whiting when up and about, bedside commode if needed -DVT PPX: OK to restart Heparin tonight -Hygiene: Maintain surgical incision clean and dry, change dressings as needed. -Drains: Maintain for now. Continue to monitor and record output q shift. We will be up this afternoon to change the dressing and remove AMBER drain. -Encourage IS 10x/hr -Dispo: Anticipate discharge home tomorrow with homecare *I reviewed and discussed this case with my attending Dr. Madrigal, whom has reviewed this chart and films and is in agreement with assessment and plan of care as outlined above. I have personally seen and examined the patient, performed the documentation and the assessment and plan as written. Number of minutes spent on the visit:20m.
[2024-07-22] MEDS ORDERED: DEXTROSE 50% SYRINGE 50 ML IVP PRN ×2 (11:04)
[2024-07-22 11:54] LABS: Glucose,Whole Blood 121 mg/dL (70-110)
[2024-07-22] MEDS: INSULIN ASPART (NovoLOG) 100 UNIT/ML VIAL SQ SCH (12:34)
[2024-07-22] MEDS: PANTOPRAZOLE 40 MG TABLET PO SCH (12:40)
[2024-07-22 13:23] VITALS: BP 164/83; PULSE 89; RESP 17; TEMP 98
--- NOTE | 2024-07-22 15:02 | P.DS ---
Providers Date of admission: 07/21/24 Expected date of discharge: 07/22/24 Attending physician: Rolly Madrigal DO Consults: 07/21/24 16:32 Consult Physician Routine Consulting Provider: Cathie Cotton Consult Reason/Comments: medical management s/p C3-C7 ACDF Do you want consulting provider notified?: Yes Primary care physician: Maryjo Fajardo Plan - Discharge Summary Discharge Rx Participant: No New Discharge Prescriptions: New cefaDROXiL [Duricef] 500 mg PO Q12HR #10 cap Cyclobenzaprine [Flexeril] 5 mg PO TID PRN #40 tablet PRN Reason: Muscle Spasm Gabapentin 300 mg PO TID #90 cap Sennosides/Docusate Sodium [Senna Plus 8.6-50 mg Tablet] 1 each PO DAILY PRN #20 tab PRN Reason: Constipation HYDROcodone/APAP 10-325MG [[place] 10-325] 1 tab PO Q4-6H PRN #42 tab PRN Reason: Pain No Action metFORMIN HCL [Glucophage] 500 mg PO BID Simvastatin [Zocor] 40 mg PO HS lisinopriL [Zestril] 5 mg PO HS Nabumetone [Relafen] 750 mg PO BID Omeprazole 20 mg PO DAILY Discharge Medication List Nabumetone [Relafen] 750 mg PO BID 02/16/15 [History] Simvastatin [Zocor] 40 mg PO HS 02/16/15 [History] lisinopriL [Zestril] 5 mg PO HS 02/16/15 [History] metFORMIN HCL [Glucophage] 500 mg PO BID 02/16/15 [History] Omeprazole 20 mg PO DAILY 02/27/23 [History] Cyclobenzaprine [Flexeril] 5 mg PO TID PRN #40 tablet 07/22/24 [Rx] Gabapentin 300 mg PO TID #90 cap 07/22/24 [Rx] HYDROcodone/APAP 10-325MG [[place] 10-325] 1 tab PO Q4-6H PRN #42 tab 07/22/24 [Rx] Sennosides/Docusate Sodium [Senna Plus 8.6-50 mg Tablet] 1 each PO DAILY PRN #20 tab 07/22/24 [Rx] cefaDROXiL [Duricef] 500 mg PO Q12HR #10 cap 07/22/24 [Rx] Follow up Appointment(s)/Referral(s): Rolly Madrigal DO [Doctor of Osteopathic Medicine] - 08/06/24 10:00 am Activity/Diet/Wound Care/Special Instructions: Spine Discharge and Recovery Instructions Date of Surgery: 07/21/2024 Diagnosis: Cervical spondylosis with stenosis Procedure: C3-C7 ACDF Medications: See medication list All medication refills should be obtained through your primary care doctor or your clinic spine surgeon. Please discuss prescription refills at your follow up appointment. Do not call the hospital for medication refills. Activity: Encourage ambulation with assist of walker, Up and about 6-8x daily PT/OT daily work on balance, strength and mobility Up in chair with all meals Shower daily Brace: Use brace when up and about, do not wear in bed or shower Dressing: Leave your dressing in place for a total of 3 days post operatively. Then you may remove your dressing and leave open to air. Keep the area clean and if not able to keep area clean, then cover with sterile gauze and tape. Showering: You may shower 3 days after your procedure allowing soap and water to run over incision. Do not scrub. Do not soak. Blot dry. Follow up: Please confirm a follow up appointment with your surgeon 2 weeks post operatively. Please make an appointment to follow up with your PCP in 1-2 weeks after surgery for evaluation '3 phase, 3-week plan' POST OP WEEKS 1-3 1. Lifting/carrying/pushing/pulling limited to less than 5 pounds. 2. Do not sit for longer than 15 minutes at one time. Get up and walk around. Prolonged sitting is NOT advised. If you lay down, see if you can tolerate laying down on you front (belly side) 3. Walk for periods of 15 minutes = 1 mile but no longer; do it multiple times times each day. 4. Ice your low back after activity. POST OP WEEKS 3-6 1. Lifting limited to less than 20 pounds. 2. Do not sit for longer than 30 minutes at a time. Frequently change positions. Use a sit-to stand workstation or take frequent breaks from sitting if you have returned to work. 3. Walk for 30 minutes each day. If possible, do these three or more times a day POST OP WEEKS 6+ At your 6-week appointment we will give you a physical therapy referral to focus on a core stabilization and strengthening program. You should also work on leg & buttock strengthening, hamstring & quadriceps stretching, and continue a low impact aerobic activity program such as swimming, walking, or riding a stationary bicycle. During the initial 6 weeks after your surgery, you are at the highest risk of re-injuring your spine. You should generally avoid BLT's (bending, lifting and twisting combination motions) and follow the above guidelines to reduce the chance of reinjury. You can anticipate post op appointments in our office at approximately 3 weeks and 6 weeks after your surgery. INCISION CARE: If your incision is not draining you do NOT need to cover it with a dressing. Keep your incision clean, dry and intact. In most cases, we apply skin glue, david or sutures to the incision at the time of surgery. This will be like a crust or have the appearance of a scab and will fall off in time on its own. The stitches or david need to be removed at 3 weeks post op appointment. You may begin to shower 3 days after surgery (this allows the glue to lawrence well). However, please avoid scrubbing the incision site or peeling off any of the skin glue. This will ensure optimal healing of your incision. Also, during this time avoid soaking the incision area in water - this includes swimming pools, hot tubs or baths. No ointments, lotions or oils on the incision until your surgeon allows. Leave david, sutures or glue in place. Neurological dysfunction that comes on suddenly can also be a sign of a stroke. Below some common symptoms of a stroke are listed: B - balance difficulty such as sudden onset walking or leaning to one side - NEW E - eye problem such as sudden double vision or trouble seeing on one side - NEW F - Facial weakness or numbness on one side - NEW A - Arm or leg weakness or numbness on one side - NEW S - Slurred speech or difficulty with word finding - NEW T - Time is BRAIN! Call 911 as soon as you recognize these symptoms Diet: Consume a regular diet rich in vegetables and lean protein such as chicken or fish. You should consume in a ratio of approximately 20% fats|40% carbohydrates|40%protein. Vegetables, sweet potatoes, brown rice or quinoa are examples of good carbohydrates. Chips, white bread, cookies and sweets/sugar are examples of bad carbohydrates. Limit your bad carbs, go wild with good carbs. "Life's Simple 7" Guidelines as per [place] [employer] These will help you reclaim your life after surgery and help desk team leader in your recovery, keeping in mind your restrictions. (1) Get Active. Physical activity can help people lose weight, control high blood pressure and cholesterol, feel emotionally better, and sleep better. (2) Control Cholesterol. Avoid a diet high in saturated fat, trans fat, & cholesterol. Limit whole milk & cream, ice cream, butter, egg yolks, processed meats (like sausage and hot dogs), and fatty meats. Choose healthy foods that are low in saturated fat, trans fat and cholesterol which include: Fruits and vegetables, fiber rich grain products (like whole grain pasta and brown rice), lean meat such as chicken, fish, nuts, seeds, and legumes. (3) Eat Better. Eat small portions. Shop at the grocery with a list and do not stray from it. Tips for a healthy diet include: Limit sodium intake to less than 1500mg daily, avoid prepackaged, processed, and fast foods, choose a diet rich in fruits, vegetables, and whole grain, high fiber foods, and limit saturated & cholesterol in your diet. (4) Manage Blood Pressure. If you have high blood pressure, you should have a cuff at home so that you can check your blood pressure regularly. Be sure you have a good cuff. An arm one is generally better than a wrist one. Bring the cuff to a doctor's appointment to validate that the measurements that your cuff are taking are accurate. Take your blood pressure twice daily when you are sitting down and relaxing. Record the numbers in a log and bring this log with you to your doctors' appointments. (5) Lose Weight if your BMI is above 25. A healthy BMI is between 19-25. To calculate Your BMI, you may use a Standard BMI Calculator on the NIH BMI website: <www.nhlbi.nih.gov/guidelines/obesity/BMI/bmicalc.htm>. Weigh oneself daily. If you are overweight, set a goal to lose weight. A pound a week loss if needed is a good target. (6) Reduce Blood Sugar. Limit foods and liquids with "added sugars." (Added sugars include sucrose, fructose, glucose, maltose, dextrose, high fructose corn syrup, corn syrup, concentrated fruit juice and honey). (7) Stop Smoking. If you smoke, quitting smoking is one of the best things that you can do for your health. Smoking increases your risk of heart attack, stroke, and peripheral vascular disease, which is a build-up of plaque in your arteries. Please discard all the cigarettes and lighters in your house. Have a plan for what you will do when you have the urge to smoke. Direct and second- hand smoke shortens your life as well as the lives of your family, friends and others around you. For your health and the health of those around you, please c onsider quitting! Proper Bending Body Mechanics: Maintain a wide stance with one foot slightly in front of the other. Keep your back straight. Bend utilizing the strength in your hips and knees. Do not bend at the waist. Maintain the lifted object at your waist-level close to your body. Avoid lifting weight that causes immediately pain or pain anywhere in the body afterwards. Smoking/Nicotine If there was ever one thing that you could do to increase your overall health, decrease your risk of cardiovascular problems by about 39% the second you make the choice, it is to STOP SMOKING. Your body's most instant gratification is the second you stop smoking. We have all heard the studies, read the articles but it is true, smoking is extremely bad for your overall health, and moreover it is detrimental to your bone health. Nicotine, IN ANY FORM, kills bone cells, prevents your body from healing fractures, and significantly prolongs healing after surgery. In spine surgery specifically, it increases your risk of not healing your bones to create a fusion and increases your risk of having a revision surgery due to this up to 60%. I know it is hard. I know it feels impossible. But there are ways. Take control of your life. We are here to help you through it. And when you are ready, ask us and we can direct you to help if you desire. Use the START Plan to Quit Smoking (please visit the Helpguide.org website listed below for more information): S = Set a quit date. Choose a date within the next 2 weeks, so you have enough time to prepare without losing your motivation to quit. If you mainly smoke at work, quit on the weekend, so you have a few days to adjust to the change. T = Tell family, friends, and co-workers that you plan to quit. Let your friends and family in on your plan to quit smoking and tell them you need their support and encouragement to stop. Look for a quit mike who wants to stop smoking as well. You can help each other get through the rough times. A = Anticipate and plan for the challenges you'll face while quitting. Most people who begin smoking again do so within the first 3 months. You can help yourself make it through by preparing ahead for common challenges, such as nicotine withdrawal and cigarette cravings. R = Remove cigarettes and other tobacco products from your home, car, and work. Throw away all your cigarettes (no emergency pack!), lighters, ashtrays, and matches. Wash your clothes and freshen up anything that smells like smoke. Shampoo your car, clean your drapes and carpet, and steam your furniture. T = Talk to your doctor about getting help to quit. Your doctor can prescribe medication to help with withdrawal and suggest other alternatives. If you can't see a doctor, you can get many products over the counter at your local pharmacy or grocery store, including the nicotine patch, nicotine lozenges, and nicotine gum. Resources for Quitting Smoking: <https://www.[place].gov/documents/[facility]/Quit_Tobacco_Resources_for_patients_313 480_7.pdf> Supplementation: Take recommended dosages of Vitamin D and Calcium to help fortify your bones and help them to heal. See your health maintenance packet for dosages and recommended levels. DVT/VTE prophylaxis: You will be given compression stockings from the hospital. Wear these daily for the first two weeks after surgery. You may take them off at night. You may be prescribed a medication to help thin your blood. Take this as directed. If you are not prescribed this medication, early and frequent ambulation has been shown to be the best prophylaxis to deep vein thrombosis and sequelae related to this event. Discharge Disposition: HOME WITH HOME HEALTH SERVICES
[2024-07-22 15:08] LABS: Basophils # (A) 0.01 X 10*3/uL (0.00-0.10); Basophils % (A) 0.1 %; Eosinophils # (A) 0 X 10*3/uL (0.04-0.35); Eosinophils % (A) 0 %; HCT 45.4 % (37.2-46.3); Lymphocytes # (A) 1.45 X 10*3/uL (0.90-5.00); Lymphocytes % (A) 12.1 %; MCH 30.8 pg (27.0-32.0); MCV 93.2 FL (80.0-97.0); Monocytes # (A) 0.74 X 10*3/uL (0.20-1.00); Monocytes % (A) 6.2 %; NRBC Per 100 WBC 0 X 10*3/uL (0.00-0.01); Neutrophils # (A) 9.77 X 10*3/uL (1.80-7.70); Neutrophils % (A) 81.2 %; Platelet Count 175 X 10*3/uL (140-440); RBC 4.87 X 10*6/uL (4.10-5.20); RDW 12.1 % (11.5-14.5); WBC 12.02 X 10*3/uL (4.50-10.00)
[2024-07-22 15:21] LABS: Blood Urea Nitrogen 13.2 mg/dL (9.0-27.0); Glucose 156 mg/dL (70-110)
[2024-07-22 15:22] LABS: Calcium 9.1 mg/dL (8.7-10.3); Carbon Dioxide 28.5 mmol/L (21.6-31.8); Chloride 103 mmol/L (96-109); Potassium 4.3 mmol/L (3.5-5.5); Sodium 142 mmol/L (135-145)
[2024-07-22 15:58] LABS: Glucose,Whole Blood 186 mg/dL (70-110)
--- NOTE | 2024-07-22 18:13 | FL ---
EXAMINATION TYPE: FL guidance operating room, XR cervical spine limited DATE OF EXAM: 07/21/2024 3:56 PM COMPARISON: Pre Operative Images if available both CT/MRI or plain film CLINICAL INDICATION: Female, 64 years old with history of M48.02 CERVICAL STENOSIS, M47.22 CERVICAL S PONDLYOSIS; TECHNIQUE: FL guidance operating room, XR cervical spine limited, multiple fluoroscopic images provid ed for procedure. Total fluoroscopy time: 42.4 seconds Total submitted images to PACS: 4 DAP: 0.4330 mGym2 Gycm2 uGym2 cGycm2 or equivalent. FINDINGS: Fluoroscopic images during internal fixation/arthroplasty demonstrate fixation hardware in appropriat e position. Hardware appears intact. No immediate complication identified. IMPRESSION: 1. No evidence for intraoperative complication. 2. Please see the operative/procedural note for further details. [facility], , 07/22/2024 6:11 PM
[2024-07-22] MEDS ORDERED: lisinopriL 5 MG TAB PO SCH (21:00)
[2024-07-22] MEDS ORDERED: ATORVASTATIN 20 MG TAB PO SCH (21:00)
--- NOTE | 2024-07-28 10:27 | P.CONS ---
History of Present Illness - Reason for Consult Consult date: 07/22/24 Medical management, status post C3-7 ACDF - History of Present Illness This is a pleasant 64-year-old female who was recently admitted under orthopedic services status post ACDF to the C3-C7 cervical spine. Patient evaluated this morning reports to feeling extremely well having some improvements in symptoms and would like to go home. Patient has been cleared by orthopedics for discharge later today. Patient follows with Dr. Fajardo in the outpatient setting with a past medical history of diabetes, GERD, hyperlipidemia, hypertension, osteoarthritis. Patient denies smoking and rarely drinks and occasionally uses marijuana. Patient has been up and working with physical therapy and doing well and reports has support at the home and will be going home. Labs reviewed and within normal limits with mildly elevated blood sugars and will continue sliding scale while hospitalized. REVIEW OF SYSTEMS: CONSTITUTIONAL: No fever, no malaise, no fatigue. HEENT: No recent visual problems or hearing problems. Denied any sore throat. CARDIOVASCULAR: No chest pain, orthopnea, PND, no palpitations, no syncope. PULMONARY: No shortness of breath, no cough, no hemoptysis. GASTROINTESTINAL: No diarrhea, no nausea, no vomiting, no abdominal pain. NEUROLOGICAL: No headaches, no weakness, no numbness. HEMATOLOGICAL: Denies any bleeding or petechiae. GENITOURINARY: Denies any burning micturition, frequency, or urgency. MUSCULOSKELETAL/RHEUMATOLOGICAL: Denies any joint pain, swelling, or any muscle pain. ENDOCRINE: Denies any polyuria or polydipsia. The rest of the 14-point review of systems is negative. PHYSICAL EXAMINATION: GENERAL: The patient is alert and oriented x3, not in any acute distress. Well developed, well nourished. HEENT: Pupils are round and equally reacting to light. EOMI. No scleral icterus. No conjunctival pallor. Normocephalic, atraumatic. No pharyngeal erythema. No thyromegaly. Soft cervical collar noted CARDIOVASCULAR: S1 and S2 present. No murmurs, rubs, or gallops. PULMONARY: Chest is clear to auscultation, no wheezing or crackles. ABDOMEN: Soft, nontender, nondistended, normoactive bowel sounds. No palpable organomegaly. MUSCULOSKELETAL: No joint swelling or deformity. EXTREMITIES: No cyanosis, clubbing, or pedal edema. NEUROLOGICAL: Gross neurological examination did not reveal any focal deficits. SKIN: No rashes. Assessment: Status post C3-C7 ACDF, postop day 1 History of GERD History of diabetes, type II, vbq-dedvoiw-laozolbud History of hyperlipidemia History of hypertension History of osteoarthritis GI prophylaxis DVT prophylaxis Full code Plan: Patient was admitted under orthopedic services Dr. Madrigal for cervical pain status post cervical C3-C7 ACDF with soft collar noted Patient was able to work with physical therapy and did well and will be going home and has support at the home Encouraged incentive spirometer use at least 10 times every hour while awake Continue monitoring Accu-Cheks with before meals and at bedtime and sliding scale as needed and will transition to home medications on discharge Encouraged increase activity as tolerated Patient is medically stable once cleared by orthopedics for discharge Thank you kindly for this consultation. We will continue to follow with orthopedics during hospitalization. The impression and plan of care has been dictated by Savannah Tejada, Nurse Practitioner as directed. Dr. Pawel MD I have performed a history and examination and MDM of this patient, discussed the same with the dictator, and agree with the dictator's assessment and plan as written ,documented as a scribe. Based on total visit time, I have performed more than 50% of the visit. Past Medical History Past Medical History: Diabetes Mellitus, GERD/Reflux, Hyperlipidemia, Hypertension, Osteoarthritis (OA) History of Any Multi-Drug Resistant Organisms: None Reported Past Surgical History: Cholecystectomy, Joint Replacement, Orthopedic Surgery, Tubal Ligation, Uterine Ablation Additional Past Surgical History / Comment(s): ryley carpal tunnel, left knee scope, rt foot, rt rotator cuff, and pain pump removal 3 days post op, right knee replacement, left hip replacement Past Anesthesia/Blood Transfusion Reactions: No Reported Reaction Past Psychological History: No Psychological Hx Reported Smoking Status: Never smoker Past Alcohol Use History: Rare Additional Past Alcohol Use History / Comment(s): drinks alcohol once a year - instructed none 24 hrs prior to surg. Past Drug Use History: Marijuana Additional Drug Use History / Comment(s): USES MARIJUANA AT TIMES-AWARE TO HOLD AT LEAST 24 HOURS PRIOR TO PROCEDURE - Past Family History Brother(s) Family Medical History: Deep Vein Thrombosis (DVT) Mother Family Medical History: Blood Disorder Additional Family Medical History / Comment(s): thrombocytopenic purpura Medications and Allergies Home Medications Medication Instructions Recorded Confirmed Type Nabumetone [Relafen] 750 mg PO BID 02/16/15 07/21/24 History Simvastatin [Zocor] 40 mg PO HS 02/16/15 07/21/24 History lisinopriL [Zestril] 5 mg PO HS 02/16/15 07/21/24 History metFORMIN HCL [Glucophage] 500 mg PO BID 02/16/15 07/21/24 History Omeprazole 20 mg PO DAILY 02/27/23 07/21/24 History Cyclobenzaprine [Flexeril] 5 mg PO TID PRN #40 tablet 07/22/24 Rx Gabapentin 300 mg PO TID #90 cap 07/22/24 Rx HYDROcodone/APAP 10-325MG [[place] 1 tab PO Q4-6H PRN #42 tab 07/22/24 Rx 10-325] Sennosides/Docusate Sodium [Senna 1 each PO DAILY PRN #20 tab 07/22/24 Rx Plus 8.6-50 mg Tablet] cefaDROXiL [Duricef] 500 mg PO Q12HR #10 cap 07/22/24 Rx Allergies Allergy/AdvReac Type Severity Reaction Status Date / Time clindamycin HCl Allergy Rash/Hives Verified 07/21/24 10:56 [From Cleocin] clindamycin palmitate HCl Allergy Rash/Hives Verified 07/21/24 10:56 [From Cleocin] clindamycin phosphate Allergy Rash/Hives Verified 07/21/24 10:56 [From Cleocin] Physical Exam Vitals: Vital Signs Temp Pulse Resp BP BP Pulse Ox 07/22/24 08:00 97.8 F 95 16 157/82 96 07/22/24 00:49 98.3 F 104 H 14 145/80 95 07/21/24 19:07 97.7 F 83 14 125/75 92 L 07/21/24 17:52 62 16 113/56 07/21/24 17:22 75 16 112/59 07/21/24 17:07 72 16 122/58 07/21/24 16:52 68 16 114/62 07/21/24 16:37 70 16 118/57 07/21/24 16:22 63 16 112/59 Intake and Output 07/21/24 07/22/24 07/22/24 22:59 06:59 14:59 Intake Total 600 Output Total 1100 500 Balance -500 -500 Intake: IV 600 Output: Urine 1075 500 Estimated Blood Loss 25 Other: Voiding Method Indwelling Catheter Weight 72.3 kg Results CBC & Chem 7: 07/22/24 10:15 07/22/24 10:15 Labs: Abnormal Lab Results - Last 24 Hours (Table) 07/21/24 07/21/24 07/22/24 Range/Units 11:08 20:20 06:14 POC Glucose (mg/dL) 124 H 137 H 154 H (70-110) mg/dL
== END 2024-07-22 16:55 | disposition home health service (06) ==
LOC: OR 10:37 → 4SSUR 16:10 → OR 07-22 16:55
PROVIDERS: ATTEND Orthopaedic Surgery
DX: M47.12 Other spondylosis with myelopathy, cervical region (principal); M47.22 Other spondylosis with radiculopathy, cervical region; M50.021 Cervical disc disorder at C4-C5 level with myelopathy; M50.121 Cervical disc disorder at C4-C5 level with radiculopathy; M48.02 Spinal stenosis, cervical region; M43.12 Spondylolisthesis, cervical region; I10 Essential (primary) hypertension; E11.65 Type 2 diabetes mellitus with hyperglycemia; E78.5 Hyperlipidemia, unspecified; K21.9 Gastro-esophageal reflux disease without esophagitis; Z79.84 Long term (current) use of oral hypoglycemic drugs; Z79.1 Long term (current) use of non-steroidal anti-inflammatories (NSAID); Z79.899 Other long term (current) drug therapy; Z96.651 Presence of right artificial knee joint; Z96.642 Presence of left artificial hip joint; Z88.1 Allergy status to other antibiotic agents; Z82.49 Family history of ischemic heart disease and other diseases of the circulatory system
CPT/HCPCS: 22551; 22552 ×3; 22853 ×4; 20930; 20936; 22846; 97161; 80048; 85025; 72040; 72125; C1713 ×2; C1762; J2250; J0330; J1100; J2710; J0690 ×2; J2405; J2001; J3010; J2704; J1170; J1596